=== PATIENT | female | born 1930 | race Caucasian/White ===

== ENCOUNTER 2016-07-30 16:41 | Inpatient (IN) | payer MEDICARE, BC ==
[2016-07-30] MEDS ORDERED: Ondansetron INJ* 2 MG/ML VIAL IV ONE (17:56)
[2016-07-30] MEDS ORDERED: Morphine INJ* 4 MG/ML 1 ML CARPUJECT IV ONE ×2 (17:56→19:28)
[2016-07-30] MEDS ORDERED: NS 0.9% 1000 ML* 1,000 ML IV ONE (17:56)
--- NOTE | 2016-07-30 18:38 | RAD ---
Indication: Right flank pain. CT of the abdomen and pelvis was performed without oral or IV contrast administration. Coronal and sagittal reconstructed images were obtained. Examination of February 25, 2016 was reviewed. There is moderate degree of right hydronephrosis and right hydroureter. There is a calcification in the distal right ureter measuring approximately 8 mm in greatest dimension. Perinephric infiltration of fat is noted. This suggests that there is calyceal rupture. Other calcifications are noted in the lower pole of the left kidney measuring 6 mm and 7 mm. The left kidney shows no hydronephrosis. 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 A calculi is noted in the midportion of the left kidney measuring up to 4 mm. No evidence of abdominal aortic aneurysm is noted. The lung bases demonstrate no pleural fluid, nodules or masses. Cardiomegaly without evidence of pericardial effusion is noted. Liver is normal in size. No focal lesions or intrahepatic ductal dilatation is noted. The liver demonstrates a large left lobe with lobulated contours consistent with cirrhosis. The spleen is normal in size. The pancreas demonstrates no mass or pancreatic duct dilatation. The common duct is not dilated. The colon is filled with stool. No retroperitoneal or pelvic adenopathy is noted. The bladder is unremarkable. Portions of the pelvis are limited due to bilateral hip replacement. IMPRESSION: THERE IS A CALCULI IN THE DISTAL RIGHT URETER JUST ABOVE THE URETEROVESICULAR JUNCTION MEASURING UP TO 8 MM IN GREATEST DIMENSION. MODERATE DEGREE OF RIGHT HYDRONEPHROSIS AND HYDROURETER IS NOTED WITH A PERINEPHRIC INFILTRATION OF FAT SUGGESTIVE OF CALYCEAL RUPTURE. LIPOMA ARISING FROM THE LOWER POLE OF THE LEFT KIDNEY.
[2016-07-30 19:15] LABS: Hematocrit 41 % (35-47); Hemoglobin 13.7 g/dl (12.0-16.0); Mean Corpuscular HGB Conc 34 g/dl (31-36); Mean Corpuscular Hemoglobin 29 pg (27-31); Mean Corpuscular Volume 87 fL (80-97); Mean Platelet Volume 10 um3 (7.4-10.4); Red Blood Count 4.69 10^6/ul (4.0-5.4); Red Cell Distribution Width 14 % (10.5-15); White Blood Count 12.1 10^3/ul (3.5-10.8)
[2016-07-30 19:31] LABS: ALT 18 U/L (7-52); Albumin 4.1 g/dL (3.2-5.2); Alkaline Phosphatase 93 U/L (34-104); BUN/Creatinine Ratio 25.2 (8-20); Blood Urea Nitrogen 29 mg/dL (6-24); C Reactive Protein 3.46 mg/L (< 5.00); CO2 Carbon Dioxide 25 mmol/L (22-32); Calcium 10.5 mg/dL (8.6-10.3); Chloride 97 mmol/L (101-111); EGFR African American 57.4 (>60); EGFR Non-African American 44.6 (>60); Globulin 3.3 g/dL (2-4); Glucose 166 mg/dL (70-100); Lipase 16 U/L (11.0-82.0); Sodium 131 mmol/L (133-145); Total Protein 7.4 g/dL (6.4-8.9)
[2016-07-30] MEDS ORDERED: Dextrose 50% Syringe 50 ML* 25 GM/50 ML SYRINGE IV PUSH PRN (20:42)
[2016-07-30] MEDS ORDERED: Ondansetron INJ* 2 MG/ML VIAL IV PRN (20:42)
[2016-07-30] MEDS ORDERED: Acetaminophen TAB* 325 MG PO PRN (20:42)
[2016-07-30] MEDS ORDERED: oxyCODONE/Acetamin 5/325 MG* TAB PO PRN (20:45)
[2016-07-30] MEDS ORDERED: Timolol 0.5% OPTH.SOL* BTL BOTH EYES SCH (21:00)
[2016-07-30] MEDS ORDERED: hydrALAZINE IV* 20 MG/ML VIAL IV SLOW PU PRN (21:02)
[2016-07-30] MEDS ORDERED: Morphine INJ* 2 MG/ML 1 ML CARPUJECT IV PRN (21:02)
--- NOTE | 2016-07-30 21:24 | ED ---
Dasia Mackenzie SooYoung, scribed for Yg Davis MD on 07/30/16 at 1853 . GI/ HPI - HPI Summary HPI Summary: A 86 y/o F presents to ED with c/o R flank pain onset this AM. Denies fever, dysuria. She rates the pain as 8 out of 10. Pert PMHx: kidney stones, seen by Dr. Hill. States it feels similar to past episodes of kidney stones. - History of Current Complaint Chief Complaint: EDFlankPain Time Seen by Provider: 07/30/16 18:47 Stated Complaint: POSS KIDNEY STONES Hx Obtained From: Patient Onset/Duration: Started Hours Ago, Still Present Timing: Constant Severity: Severe Pain Intensity: 8 - out of 10 Location of Pain: Flank - R Associated Signs and Symptoms: Positive: Other: - neg: fever. Negative: Dysuria - Allergy/Home Medications Allergies/Adverse Reactions: Allergies Allergy/AdvReac Type Severity Reaction Status Date / Time No Known Allergies Allergy Verified 07/30/16 16:57 PMH/Surg Hx/FS Hx/Imm Hx Previously Healthy: No Endocrine/Hematology History: Reports: Hx Diabetes - TYPE 2, Hx Thyroid Disease - ON MED Cardiovascular History: Reports: Hx Coronary Artery Disease - ON MED, Hx Hypertension - ON MED, Hx Pacemaker/ICD - SEES DR. MONTERO, Hx Peripheral Vascular Disease, Other Cardiovascular Problems/Disorders - CAD Denies: Hx Congestive Heart Failure Respiratory History: Reports: Hx Sleep Apnea GI History: Reports: Hx Gastroesophageal Reflux Disease - ON MED History: Reports: Hx Kidney Stones - CURRENTLY ON RIGHT Musculoskeletal History: Reports: Hx Arthritis - GENERALIZED, Other Musculoskeletal History - OSTEOPOROSIS Sensory History: Reports: Hx Cataracts - BILAT, Hx Contacts or Glasses - GLASSES , Hx Glaucoma - BOTH EYES, Hx Hearing Aid - BILAT. Opthamlomology History: Reports: Hx Cataracts - BILAT, Hx Contacts or Glasses - GLASSES, Hx Glaucoma - BOTH EYES Psychiatric History: Reports: Hx Anxiety - ON MED, Hx Depression - ON MED - Surgical History Surgery Procedure, Year, and Place: RIGHT THIGH STENT. PACEMAKER. CHOLECYSTECTOMY/APPY. HYSTERECTOMY. BILT. HIP REPLACEMENT. BILAT.SHOULDER REPLACEMENT Hx Anesthesia Reactions: No - Immunization History Date of Tetanus Vaccine: unsure Date of Influenza Vaccine: 2012 Infectious Disease History: No Infectious Disease History: Denies: Traveled Outside the [place] in Last 30 Days - Family History Known Family History: Positive: Cardiac Disease - brothers, Diabetes - mother, brother, Respiratory Disease - father - emphysema, Other - stomach CA, breast CA , neck CA - Social History Occupation: Retired Lives: Alone Alcohol Use: None Hx Substance Use: No Substance Use Type: Reports: None Hx Tobacco Use: No Smoking Status (MU): Never Smoked Tobacco Review of Systems Negative: Fever Positive: flank pain - R. Negative: dysuria All Other Systems Reviewed And Are Negative: Yes Physical Exam - Summary Physical Exam Summary: Cata: well-appearing, MILD PAIN DISTRESS Skin: warm, skin color reflects adequate perfusion, dry Head/Face: nml head/face inspection Eyes: EOMI, ALEJA ENT: nml Neck: supple, non-tender Resp: CTA, breath sounds present Cardio: RRR Abd: soft, TENDERNESS RLQ Bowel: HYPOACTIVE BOWEL SOUNDS PRESENT Musc: nml, strength/ROM intact Neuro: nml, sensory/motor intact, A&O x 3 Psych: affect/mood appropriate Triage Information Reviewed: Yes Vital Signs On Initial Exam: Initial Vitals Temp Pulse Resp BP Pulse Ox 97.5 F 58 20 155/84 97 07/30/16 16:57 07/30/16 16:57 07/30/16 16:57 07/30/16 16:57 07/30/16 16:57 Vital Signs Reviewed: Yes Diagnostics - Vital Signs Vital Signs Temp Pulse Resp BP Pulse Ox 07/30/16 18:04 97.3 F 60 18 176/65 07/30/16 16:57 97.5 F 58 20 155/84 97 - Laboratory Lab Results: Lab Results 07/30/16 07/30/16 07/30/16 Range/Units 19:06 19:06 19:06 WBC 12.1 H (3.5-10.8) 10^3/ul RBC 4.69 (4.0-5.4) 10^6/ul Hgb 13.7 (12.0-16.0) g/dl Hct 41 (35-47) % MCV 87 (80-97) fL MCH 29 (27-31) pg MCHC 34 (31-36) g/dl RDW 14 (10.5-15) % Plt Count 108 L (150-450) 10^3/ul MPV 10 (7.4-10.4) um3 Neut % (Auto) 84.6 H (38-83) % Lymph % (Auto) 10.0 L (25-47) % [place] % (Auto) 4.1 (1-9) % Eos % (Auto) 0.7 (0-6) % Baso % (Auto) 0.6 (0-2) % Absolute Neuts (auto) 10.2 H (1.5-7.7) 10^3/ul Absolute Lymphs (auto) 1.2 (1.0-4.8) 10^3/ul Absolute Monos (auto) 0.5 (0-0.8) 10^3/ul Absolute Eos (auto) 0.1 (0-0.6) 10^3/ul Absolute Basos (auto) 0.1 (0-0.2) 10^3/ul Absolute Nucleated RBC 0.01 10^3/ul Nucleated RBC % 0.1 INR (Anticoag Therapy) 0.93 (0.89-1.11) Sodium 131 L (133-145) mmol/L Potassium TNP Chloride 97 L (101-111) mmol/L Carbon Dioxide 25 (22-32) mmol/L Anion Gap TNP BUN 29 H (6-24) mg/dL Creatinine 1.15 H (0.51-0.95) mg/dL Est GFR ( Amer) 57.4 (>60) Est GFR (Non-Af Amer) 44.6 (>60) BUN/Creatinine Ratio 25.2 H (8-20) Glucose 166 H (70-100) mg/dL Calcium 10.5 H (8.6-10.3) mg/dL Total Bilirubin 1.50 H (0.2-1.0) mg/dL AST TNP ALT 18 (7-52) U/L Alkaline Phosphatase 93 (34-104) U/L C-Reactive Protein 3.46 (< 5.00) mg/L Total Protein 7.4 (6.4-8.9) g/dL Albumin 4.1 (3.2-5.2) g/dL Globulin 3.3 (2-4) g/dL Albumin/Globulin Ratio 1.2 (1-3) Lipase 16 (11.0-82.0) U/L Result Diagrams: 07/30/16 19:06 07/30/16 19:06 Lab Statement: Any lab studies that have been ordered have been reviewed, and results considered in the medical decision making process. - CT ABD/PEL CT CT Interpretation: Positive (See Comments) - IMPRESSION: THERE IS A CALCULI IN THE DISTAL RIGHT URETER JUST ABOVE THE URETEROVESICULAR JUNCTION MEASURING UP TO 8 MM IN GREATEST DIMENSION. MODERATE DEGREE OF RIGHT HYDRONEPHROSIS AND HYDROURETER IS NOTED WITH A PERINEPHRIC INFILTRATION OF FAT SUGGESTIVE OF CALYCEAL RUPTURE. CT Interpretation Completed By: Radiologist GIGU Course/Dx - Course Assessment/Plan: DISCUSSED WITH DR HILL, UROLOGY. ADMIT HOSPITALIST STABLE. - Diagnoses Provider Diagnoses: Kidney stone on right side - Physician Notifications Discussed Care Of Patient With: 2000: Spoke to Dr. Hill, urology, needs a cath urine: if infected go to OR tonight, if not infected recommends admission and will see tomorrow. Discharge - Discharge Plan Condition: Stable Disposition: ADMITTED TO [facility] The documentation as recorded by the Dasia palomares SooYoung accurately reflects the service I personally performed and the decisions made by me, Yg Davis MD.
[2016-07-30 21:44] LABS: Urine Bacteria Absent (Absent); Urine Bilirubin Negative (Negative); Urine Glucose Negative (Negative); Urine Nitrite Negative (Negative)
[2016-07-30] MEDS ORDERED: cefTRIAXone VIAL(*) 1,000 MG in NS 0.9% 50 ML* 50 ML IVPB SCH (22:00)
[2016-07-30] MEDS: NS 0.9% 1000 ML* 1,000 ML IV SCH (22:16)
--- NOTE | 2016-07-30 22:18 | RAD ---
Indication: Diabetes, hypertension. Single frontal view of the chest performed at 2100 hours was reviewed. Comparison is made with previous exam dated April 28, 2013. No mediastinal shift is noted. Heart is of normal size and configuration. Lung trejo appear clear. IMPRESSION: NO ACTIVE CARDIOPULMONARY DISEASE IS NOTED. Multiple pacemaker leads are in place.
[2016-07-30] MEDS: Gabapentin CAP(*) 300 MG PO SCH (22:41)
[2016-07-30] MEDS: Heparin VIAL(*) 5000 UNITS/ML VIAL (FIVE THOUSAND) SUBCUT SCH (22:43)
--- NOTE | 2016-07-30 23:06 | ED ---
Luiz Mackenzie Anna, scribed for Tayler Huerats MD on 07/30/16 at 1756 . Progress - Progress Note Progress Note: Patient is an 86 y/o female coming to [facility] presenting with right-sided flank pain that began this morning. Pain is described as severity 9/10. Denies emesis. Course/Dx - Diagnoses Provider Diagnoses: Kidney stone on right side The documentation as recorded by the sampsonibeLuiz Anna accurately reflects the service I personally performed and the decisions made by , Tayler Huertas MD.
--- NOTE | 2016-07-31 00:51 | HP ---
HISTORY AND PHYSICAL: DATE OF ADMISSION: 07/30/16 PRIMARY CARE PROVIDER: Dr. Maldonado. ATTENDING PHYSICIAN WHILE IN THE HOSPITAL: Leonard Otero MD* (report dictated by Jaden Long NP) CHIEF COMPLAINT: 1. Right-sided flank pain. 2. Nausea. HISTORY OF PRESENT ILLNESS: Ms. Doran is an 86-year-old female patient with multiple medical problems, who has a history of hypertension, hyperlipidemia, GERD, diabetes, glaucoma, depression, JAIR, history of peripheral vascular disease. She comes in today stating that this morning suddenly she had an onset of right-sided flank pain that got progressively worse throughout the day with associated nausea. She said the pain was not getting any better. She said it felt like her previous stones and she knew that she needed to be evaluated. She came in to the ER initially with a significant amount of pain but she said she is not really having much pain now. She was given morphine. She says that she had one episode of nausea but no vomiting. She denies any dysuria or any frequency or any urinary symptoms. She denies having any chest pain currently or having any shortness of breath. She does state that she has not had any fevers or chills associated with this and she has not had any recent sick contacts. She states that the pain was quite unbearable and she was really unable to bear it any more, so she was evaluated here in the ER, ultimately found to have hydronephrosis and hydroureter and some perinephric straining. Because of this, the hospitalist service was asked to evaluate for admission. PAST MEDICAL HISTORY: Significant for: 1. Hypertension. 2. Hypothyroidism. 3. Hyperlipidemia. 4. GERD. 5. Diabetes. 6. Glaucoma. 7. Depression. 8. JAIR. 9. Peripheral vascular disease. PAST SURGICAL HISTORY: 1. The patient has had a pacemaker. 2. Cataract extraction. 3. Bilateral total hip arthroplasties. 4. Bilateral shoulder surgeries. 5. Laparoscopic cholecystectomy. 6. Multiple kidney stones. 7. Right lower extremity stenting. 8. Appendectomy. HOME MEDICATIONS: According to the patient, she states the meds in the list that we had in the computer have not changed, include: 1. Latanoprost 1 drop both eyes daily. 2. Neurontin 300 mg p.o. b.i.d. 3. Cymbalta 60 mg daily. 4. Aspirin 325 mg p.o. daily. 5. Percocet 1 tablet p.o. every 6 hours as needed. 6. Gabapentin 500 mg p.o. b.i.d. 7. Timolol 1 drop both eyes at bedtime. 8. Zocor 40 mg daily. 9. MiraLax 17 g p.o. daily. 10. Protonix 40 mg daily. 11. Zofran 4 mg every 8 hours as needed. 12. Cozaar 50 mg daily. 13. Synthroid 150 mcg p.o. daily. ALLERGIES TO MEDICATIONS: Include no known drug allergies. FAMILY HISTORY: Her mother had cancer and diabetes. Father had a history of COPD. SOCIAL HISTORY: The patient is a smoker. She does not drink alcohol. She lives alone. Surrogate decision maker is her daughter. REVIEW OF SYSTEMS: There is no documented fever. She denied any significant weight change. There was no double vision. There is no ear discharge. She denies having any rhinorrhea. No sore throat, no thyroid enlargement. She denies having any chest pain. There is no shortness of breath. There is abdominal pain per my HPI. There was nausea, but no vomiting. No dysuria, no frequency. No loss of consciousness. No pruritus and no skin ulcerations. Review of 14 systems completed, all others negative. PHYSICAL EXAMINATION GENERAL: Ms. Doran is an 86-year-old female patient. She appears well nourished, well developed. She is sitting in the ER stretcher. She is morbidly obese, does not appear to be in any acute distress. VITAL SIGNS: Blood pressure 173/74, pulse 77, respirations 18, O2 sat 92%, temperature 97.3. HEENT: Head is atraumatic. Eyes: Sclerae anicteric. Throat: Oral mucosa appears to be moist. No oropharyngeal erythema. NECK: Supple. LUNGS: Clear to auscultation. No wheezes, rales, or rhonchi. HEART: Heart sounds, S1, S2. Regular rate and rhythm. No murmurs, rubs, or gallops. ABDOMEN: Soft, flat. There is no CVA tenderness. EXTREMITIES: Pulses are 2+ throughout. She is able to move all 4 extremities, 5/5 strength. NEUROLOGIC: The patient is awake, alert, oriented x3. Tongue midline. Bar Host equal. No gross focal deficits. SKIN: Grossly intact. LABORATORY DATA: Today reveals WBC of 12.1, RBC of 4.69, hemoglobin 13.7, hematocrit of 41, platelet count of 108. INR is 0.93. Sodium 131, potassium is pending. Bicarb 25. Chloride 97. BUN of 29, creatinine 1.15 right near baseline, glucose 166, calcium 10.5, total bili 1.5, AST pending, ALT of 18, alk phos 93. Albumin of 4.1. IMAGING: She had an abdominal pelvis CT scan obtained today, which showed there is calculi in the distal right ureter just above the UVJ measuring up to 8 mm in greatest dimension, moderate degree of right hydronephrosis, hydroureter is noted with a perinephric infiltration of fat suggestive of calyceal rupture, lipoma arising from the lower pole of kidney. Old medical records were reviewed. ASSESSMENT AND PLAN: Ms. Doran is an 86-year-old female patient coming into the ER today with complaints of sudden onset of right-sided abdominal discomfort , on evaluation found to have right-sided hydronephrosis and hydroureter. She will be admitted under observation status for: 1. Hydronephrosis with hydroureter. At this point, the patient will be n.p.o. I am awaiting the urine. If the urine appears to be infected, I will call Dr. Marcelino and [facility]. If it does not appear to be infected, then I will have him evaluate her in the morning and make her n.p.o. after midnight. Her RCRI score is scored at 2, but I believe she scores higher because she has a sedentary lifestyle, has obstructive sleep apnea. I think she is a moderate risk for the procedure, but I would like to get an EKG and a chest x-ray for further stratification but for now if the surgery is emergent, then the benefits of the surgery outweigh the risk at that point, so we are awaiting on the urine to determine that for the time being. For the time being, I will hydrate her, I will put her on Rocephin , try to get her urine. We will send off blood cultures. In addition to this, we will get urine cultures. 2. Hypertension. I am going to hold her Cozaar. I will order hydralazine p.r.n. as I did note that her blood pressures were in the 170s at this time, which may be related to pain. 3. Hypothyroidism. Continue her Synthroid. 4. Hyperlipidemia. Continue her meds as prescribed. 5. Gastroesophageal reflux disease. Continue PPI therapy. 6. Diabetes. She will be on a lispro sliding scale. 7. Depression. Continue on meds as prescribed. 8. Obstructive sleep apnea, I did order CPAP. 9. Peripheral vascular disease. Continue statin and aspirin. 10. DVT prophylaxis. She is high risk, she will be placed on heparin subcu. 11. Code status. She wishes to be a DNR. I am waiting to see if there is a MOLST form in the computer, if there is we will use this. If there is not, we will go ahead and fill one out. TIME SPENT: Time spent on the admission was 60 minutes; greater than half the time was spent [id number] with the patient obtaining my history and physical, the other half time is spent going over the plan of care with the patient and implementing plan of care. I did discuss the plan of care with my attending, Dr. Otero, who is in agreement. JADNE LONG NP CC: Dr. Maldonado; Dr. Marcelino * [id number]/[facility] #: [id number] MTDD
[2016-07-31] MEDS: Heparin VIAL(*) 5000 UNITS/ML VIAL (FIVE THOUSAND) SUBCUT SCH ×2 (04:45→16:52)
[2016-07-31] MEDS: NS 0.9% 1000 ML* 1,000 ML IV SCH (06:35)
[2016-07-31 06:48] LABS: Hematocrit 36 % (35-47); Hemoglobin 12.2 g/dl (12.0-16.0); Mean Corpuscular HGB Conc 34 g/dl (31-36); Mean Corpuscular Hemoglobin 29 pg (27-31); Mean Corpuscular Volume 87 fL (80-97); Mean Platelet Volume 10 um3 (7.4-10.4); Red Blood Count 4.15 10^6/ul (4.0-5.4); Red Cell Distribution Width 15 % (10.5-15)
[2016-07-31 07:05] LABS: BUN/Creatinine Ratio 21.1 (8-20); Calcium 8.9 mg/dL (8.6-10.3); EGFR African American 48.5 (>60); EGFR Non-African American 37.7 (>60); Potassium 4.2 mmol/L (3.5-5.0)
[2016-07-31] MEDS: Gabapentin CAP(*) 300 MG PO SCH (07:43)
[2016-07-31] MEDS: Insulin LISPRO* 1 UNITS UNIT SUBCUT SCH ×3 (08:56→17:46)
[2016-07-31] MEDS ORDERED: DULoxetine DR CAP* 60 MG CAP.DR PO SCH (09:00)
[2016-07-31] MEDS ORDERED: Omeprazole CAP* 20 MG PO SCH (09:00)
[2016-07-31] MEDS ORDERED: Latanoprost 0.005%* 2.5 ml BTL BOTH EYES SCH (09:00)
[2016-07-31] MEDS ORDERED: Levothyroxine TAB* 150 MCG TAB PO SCH (09:00)
[2016-07-31] MEDS ORDERED: Atorvastatin* 20 MG TAB PO SCH (09:00)
[2016-07-31] MEDS ORDERED: NS 0.9% 1000 ML* 1,000 ML IV SCH (11:00)
[2016-07-31] MEDS ORDERED: Buffered Lidocaine 1% SYR 3ML* 3 ML/SYR SYRINGE INTRADERM ONE (11:00)
[2016-07-31] MEDS ORDERED: Iohexol 180 (CONTRAST) 10 ML SDV IV ONE (12:04)
[2016-07-31] MEDS ORDERED: Propofol* 10 MG/ML 20 ML BTL IV PUSH ONE (12:22)
[2016-07-31] MEDS ORDERED: Lidocaine 2% PF * 5 ML VIAL ONE (12:22)
[2016-07-31] MEDS ORDERED: Famotidine IV* 10 MG/ML 2 ML (20 mg) ONE (12:22)
[2016-07-31] MEDS ORDERED: Dexamethasone IV* 4 MG/ML 1 ML (4 MG) ONE (12:22)
[2016-07-31] MEDS ORDERED: Midazolam* 1 MG/ML 2 ML VIAL (2 MG) ONE (12:22)
[2016-07-31] MEDS ORDERED: fentaNYL* 50 MCG/ML 2 ML VIAL (100 MCG VIAL) ONE (12:43)
[2016-07-31] MEDS ORDERED: cefTRIAXone VIAL(*) 1,000 MG in NS 0.9% 50 ML* 50 ML IVPB ONE (13:00)
[2016-07-31] MEDS ORDERED: DiMENhydriNATE IV* 50 MG/ML VIAL IV PUSH PRN (13:03)
[2016-07-31] MEDS ORDERED: fentaNYL* 50 MCG/ML 2 ML VIAL (100 MCG VIAL) IV PRN (13:03)
[2016-07-31] MEDS ORDERED: PROCHLORPERAZINE INJ 5 MG/ML 2 ML VIAL IV PRN (13:03)
--- NOTE | 2016-07-31 14:04 | RAD ---
INDICATION: Hydronephrosis COMPARISONS: CT dated July 30, 2016 TECHNIQUE: Fluoroscopy was provided for a retrograde pyelogram and stent placement. Total fluoroscopy time is: 14 seconds FINDINGS: Spot images demonstrate contrast within the renal collecting system which is dilated. A ureteral stent is noted IMPRESSION: FLUOROSCOPY WAS PROVIDED FOR A RETROGRADE PYELOGRAM AND STENT PLACEMENT CPT II Codes: 6045F
[2016-07-31] MEDS ORDERED: oxyCODONE/Acetamin 5/325 MG* TAB PO PRN (16:20)
[2016-07-31 17:42] VITALS: BP 105/41
--- NOTE | 2016-08-01 02:04 | OP ---
DATE OF OPERATION: 07/31/16 - ROOM #334 DATE OF : 28 SURGEON: Abel Marcelino MD ANESTHESIOLOGIST: Jeferson Holguin MD ANESTHESIA: General. PRE-OP DIAGNOSES: 1. Distal right ureteral calculus (8 mm). 2. Renal colic due to above. POST-OP DIAGNOSES: 1. Distal right ureteral calculus (8 mm). 2. Renal colic due to above. OPERATIVE PROCEDURE: 1. Cystoscopy. 2. Right ureteroscopy and laser lithotripsy of right ureteral calculus. 3. Right retrograde pyelography and placement of right ureteral stent (6 [place] ). INDICATIONS: Ms. Doran is an 86-year-old white female who is a known stone former and who required several endoscopic procedures in the past for obstructing ureteral calculi. She is known to have residual bilateral renal calculi. She presented to the emergency room yesterday with symptoms of right renal colic and noncontrast CT of the abdomen and pelvis showed an 8-mm calculus in the distal right ureter associated with right hydronephrosis and extravasation around the right kidney. There were also bilateral non-obstructing renal calculi. The patient was not febrile and her urinalysis showed no infection. The patient was admitted for IV hydration and medical clearance. She is taken to the operating room for endoscopic extraction of the Rt ureteral stone. PATHOLOGY: At cystoscopy, the bladder mucosa looked normal. There were no suspicious bladder lesions seen. No changes to suggest cystitis. No calculi or diverticula were noted. She had a cystocele. At fluoroscopy, a 1-cm calculus was noted in the distal right ureter about 3 cm above the level of the orifice. Upon right ureteroscopy, the calculus was noted in that location. It was impacted. There was edema of the adjacent ureteral mucosa. The calculus had the gross appearance of calcium oxalate stone. Right retrograde pyelography showed moderate right hydronephrosis. DESCRIPTION OF PROCEDURE: After successful general anesthesia, the patient was placed in the lithotomy position and was prepped and draped in the usual manner. Cystoscopy was performed. The bladder was inspected and above findings were noted. A flexible-tip guidewire was then introduced into the right orifice and after several attempts was successfully introduced past the stone and positioned in the area of the renal pelvis. The Cystoscope was removed keeping the guidewire in place. A size 6.5 semirigid tapered ureteroscope was then introduced inside the bladder. A flexible-tip stone basket was then introduced through the port of the ureteroscope and its flexible tip was introduced inside the right ureteral orifice and used as a guide to introduce the ureteroscope. The calculus was identified. The stone basket was then passed beyond the stone and was deployed to prevent the proximal migration of the stone. Using the other port of the ureteroscope, a 550 micron laser fiber was introduced. The stone was then broken in multiple small fragments. The fragments were extracted with basket. At the completion of the procedure, there were no residual stone fragments seen. There were hyperemia and edema of the ureteral mucosa at the site of the stone, but no evidence of any ureteral injury or perforation. Retrograde pyelography was then performed. A size 6 [place] stent was then placed over the guidewire with proximal end coiling in the renal pelvis and distal end coiling inside the bladder. There was good drainage of the contrast from the kidney and no extravasation. A size 16 [place] catheter was then placed. The patient tolerated the procedure well and left the operating room in good condition. The plan is to leave the stent in place for about a week, it will be removed in the office. CC: Dr. Ro * [id number]/[facility] #: [id number] MARLENE
--- NOTE | 2016-08-01 04:18 | DS ---
DISCHARGE SUMMARY: DATE OF ADMISSION: 07/30/16 DATE OF DISCHARGE: 07/31/16 PRIMARY CARE PROVIDER: Vel Ro DO UROLOGIST: Abel Marcelino MD DISCHARGE DIAGNOSIS: 1. Renal colic. 2. Nephrolithiasis with hydronephrosis and hydroureter. 3. Leukocytosis. SECONDARY DIAGNOSIS: 1. Hypertension. 2. Hypothyroidism. 3. Hyperlipidemia. 4. Gastroesophageal reflux disease. 5. Type 2 diabetes. 6. Glaucoma. 7. Depression. 8. Obstructive sleep apnea. 9. Peripheral vascular disease. 10. Obesity with a BMI of 39.5. 11. Status post pacemaker. 12. Status post cataract surgery. 13. Status post bilateral hip arthroplasties. 14. Bilateral shoulder surgeries. 15. Status post cholecystectomy. 16. History of multiple kidney stones. 17. Status post multiple urological procedures. 18. Status post stent to the right lower extremity. MEDICATION LIST: Unchanged from admission: 1. Aspirin 325 mg p.o. daily. 2. Cymbalta 60 mg p.o. daily. 3. Gabapentin 300 mg p.o. b.i.d. 4. Xalatan 0.005% one drop to both eyes daily. 5. Levothyroxine 150 mcg p.o. daily. 6. Losartan 50 mg daily. 7. Metformin 500 mg p.o. b.i.d. 8. Pantoprazole 40 mg p.o. daily. 9. Simvastatin 40 mg p.o. daily. 10. Timolol 0.5% one drop to both eyes at bedtime. New medications: Tylenol 650 mg p.o. q.6 hours p.r.n. pain or fever. HOSPITAL COURSE: Ms. Doran is an 86-year-old lady with a past medical history stated above who presented to the emergency room with complaints of right-sided flank pain and nausea. For more details about her presentation, I refer you to her history and physical. The patient had a CT of abdomen and pelvis without contrast that showed a calculi in the distal right ureter just above the ureterovesical junction measuring up to 8 mm in greatest dimension. There is moderate degree of right hydronephrosis and hydroureter with perinephric infiltration of fat suggestive of calyceal rupture. The patient was admitted for pain control. Her urinalysis showed only hematuria , but no signs of infection. The patient was seen in consultation by Urology and taken to the OR on . Dr. Marcelino performed cystoscopy and removed the stone on the right and placed the stent. His recommendation was that the patient could be discharged home after the procedure. It was not felt that she required antibiotics as there is no sign of infection at this point. The plan is for her to be discharged home to follow up with him next week. PHYSICAL EXAMINATION: Vital signs: Temperature of 97.6, heart rate is 75, respiratory rate 16, oxygen saturation is 98% on 1 L nasal cannula, blood pressure is 124/52. General: The patient is a pleasant elderly obese lady, lying in bed, in no acute distress. Cardiovascular: Normal S1 and S2. Regular rate and rhythm. Chest: Breath sounds present bilaterally with no added sounds. Abdomen: Soft, obese. Bowel sounds are present. Extremities: No edema. Neurologic: She is alert, awake, and oriented x3, able to move all 4 extremities. DISPOSITION: Home. STATUS WHILE IN THE HOSPITAL: Observation. DIET: Heart healthy consistent carb diet. ACTIVITY: As tolerated. If you need more information, please feel free to contact me at [phone] or please obtain a full medical record. TIME SPENT: Approximately 45 minutes were spent to complete this discharge. CC: Vel Ro DO; Abel Marcelino MD* [id number]/[facility] #: [id number] MTDD
== END 2016-07-31 19:00 | disposition home or self-care (01) | DRG 669 ==
LOC: ED 16:41 → SSU 20:34
PROVIDERS: ADMIT Internal Medicine; ATTEND Internal Medicine
PROC: 0T768DZ Dilation of Right Ureter with Intraluminal Device, Via Natural or Artificial Opening Endoscopic (ICD-10-PCS; 2016-07-31)
PROC: BT1DZZZ Fluoroscopy of Right Kidney, Ureter and Bladder (ICD-10-PCS; 2016-07-31)
PROC: 0TC68ZZ Extirpation of Matter from Right Ureter, Via Natural or Artificial Opening Endoscopic (ICD-10-PCS; principal; 2016-07-31 12:00)
DX: N23 Unspecified renal colic (principal); N13.2 Hydronephrosis with renal and ureteral calculous obstruction; E11.42 Type 2 diabetes mellitus with diabetic polyneuropathy; R31.9 Hematuria, unspecified; N13.4 Hydroureter; D72.829 Elevated white blood cell count, unspecified; I10 Essential (primary) hypertension; E78.5 Hyperlipidemia, unspecified; K21.9 Gastro-esophageal reflux disease without esophagitis; H40.9 Unspecified glaucoma; G47.33 Obstructive sleep apnea (adult) (pediatric); E66.01 Morbid (severe) obesity due to excess calories; Z68.39 Body mass index [BMI] 39.0-39.9, adult; Z95.0 Presence of cardiac pacemaker; Z96.643 Presence of artificial hip joint, bilateral; Z79.82 Long term (current) use of aspirin; Z79.84 Long term (current) use of oral hypoglycemic drugs; Z79.52 Long term (current) use of systemic steroids; Z79.899 Other long term (current) drug therapy; Z80.9 Family history of malignant neoplasm, unspecified; Z83.3 Family history of diabetes mellitus; Z83.6 Family history of other diseases of the respiratory system; F17.210 Nicotine dependence, cigarettes, uncomplicated
CPT/HCPCS: 36415; 71010; 74176; 74420; 80048; 80053; 81003; 81015; 82365; 83605; 83690; 85025; 85610; 86140; 87040; 88300; 93005; 94760; 96374; 96375; 99284; A9270-GY; C1876; J0360; J0696; J1100; J1644; J2250; J2270; J2405; J2704; J3010

== ENCOUNTER 2016-11-09 08:32 | Day surgery (SDC) | payer MEDICARE, BC ==
--- NOTE | 2016-11-02 22:19 | HP ---
HISTORY AND PHYSICAL: DATE OF PLANNED ADMISSION AND SURGERY: 11/09/16 HISTORY OF PRESENT ILLNESS: Ms. Doran is an 86-year-old white female who is admitted with right hydroureteronephrosis, suspected distal right ureteral stricture for cystoscopy, right ureteroscopy balloon dilation, and right ureteral stent placement. Ms. Doran is a known stone former who over the last 4 years had bilateral ureteroscopies for obstructing ureteral calculi. The last procedure was performed on 07/31/16. At that time, she had a 1-cm calculus that was impacted in the distal right ureter. She underwent an urgent right ureteroscopy, laser lithotripsy, and right ureteral stent placement. All the stone fragments were removed. At the time of the procedure, the stone was impacted and there was edema of the adjacent ureteral mucosa. The stent was removed postop about one week later. She has been doing well except for an occasional brief discomfort in the right flank, but no recurrent colics. She had a follow-up renal ultrasound in the office, which showed moderate-to- severe right hydroureteronephrosis. A calculus could not be seen in the distal ureter. The patient was sent for a non-contrast CT of the abdomen and pelvis. The study showed 2 small nonobstructing right renal calculi measuring about 5 mm each. There was [id number] right hydronephrosis and the ureter was dilated all the way to the distal end and no abnormal calcifications were noted to suggest a stone, strongly suggestive of a ureteral stricture. Because of that finding, the patient is admitted for the above procedure. PAST MEDICAL HISTORY AND SYSTEM REVIEW: The patient has multiple medical problems. She has hypertension, hypothyroidism, hyperlipidemia, type 2 diabetes , status post pacemaker placement, status post bilateral hip arthroplasties, status post cholecystectomies, and gastroesophageal reflux. She has no allergies to medications. She has a pacemaker in place since 2007. MEDICATIONS: The patient is maintained on the following medications: 1. Aspirin 325 mg daily. 2. Cymbalta 60 mg daily. 3. Gabapentin 300 mg twice a day. 4. Levothyroxine 150 mcg daily. 5. Losartan 50 mg daily. 6. Metformin 500 mg twice a day. 7. Pantoprazole 40 mg daily. 8. Simvastatin 40 mg daily. 9. Timolol 0.5% 1 drop to both eyes at bedtime for glaucoma. PHYSICAL EXAMINATION Obese white female, who looks her age. Blood pressure 120/60, pulse of 50. Exam of the heart and lungs is normal. Her lungs are clear. Abdomen is soft, obese. No masses and no tenderness. IMPRESSION: Distal right ureteral stricture causing right hydroureteronephrosis, status post right ureteroscopy for an impacted stone 3 months ago. Multiple medical problems as noted above. PLAN: Plan is for cystoscopy, right ureteroscopy and balloon dilation of right ureteral stricture with a placement of right ureteral stent. I discussed the above plans with the patient. All her questions were answered. CC: Vel Ro DO* [id number]/[facility] #: [id number] MTDD
[~2016-11-09 08:32] MED LIST: Famotidine IV* 10 MG/ML 2 ML (20 mg) IV ONE; Famotidine IV* 10 MG/ML 2 ML (20 mg) ONE; cefTRIAXone(*) 2 GM ADDV.VIAL IVPB ONE
[2016-11-09] MEDS ORDERED: Buffered Lidocaine 0.9% SYRIN* 5 ML/SYR SYRINGE ONE (08:33)
[2016-11-09] MEDS ORDERED: Buffered Lidocaine 0.9% SYRIN* 5 ML/SYR SYRINGE INTRADERM ONE (08:43)
[2016-11-09] MEDS ORDERED: KETAMINE HCL* 50 MG/ML 10 ML VIAL ONE (09:42)
[2016-11-09] MEDS ORDERED: Midazolam* 1 MG/ML 5 ML VIAL (5 MG) ONE (09:42)
[2016-11-09] MEDS ORDERED: Dexamethasone IV* 4 MG/ML 1 ML (4 MG) ONE (09:42)
[2016-11-09] MEDS ORDERED: Propofol* 10 MG/ML 20 ML BTL IV PUSH ONE (09:42)
[2016-11-09] MEDS ORDERED: Lidocaine 2% PF * 5 ML VIAL ONE (09:42)
[2016-11-09] MEDS ORDERED: Ketorolac INJ* 30 MG/ML 1 ML VIAL ONE (09:42)
[2016-11-09] MEDS ORDERED: Ondansetron INJ* 2 MG/ML VIAL ONE (09:42)
[2016-11-09] MEDS ORDERED: fentaNYL* 50 MCG/ML 2 ML VIAL (100 MCG VIAL) ONE (09:42)
[2016-11-09] MEDS ORDERED: Iohexol 180 (CONTRAST) 10 ML SDV IV ONE (09:59)
[2016-11-09] MEDS ORDERED: Chloroprocaine 2%* 20 ML VIAL ONE (10:02)
[2016-11-09] MEDS ORDERED: Phenylephrine IV* 40 MCG/ML 10 ML SYRINGE ONE (10:28)
[2016-11-09] MEDS ORDERED: EPHEDrine (Pressors)* 50 MG/ML VIAL ONE (10:36)
[2016-11-09] MEDS ORDERED: DiMENhydriNATE IV* 50 MG/ML VIAL IV PUSH PRN (10:50)
[2016-11-09] MEDS ORDERED: fentaNYL* 50 MCG/ML 2 ML VIAL (100 MCG VIAL) IV PRN (10:50)
[2016-11-09] MEDS ORDERED: Phenylephrine INJ* 10 MG/ML 1 ML VIAL (10 MG) ONE (11:08)
[2016-11-09] MEDS ORDERED: Phenylephrine INJ* 50 MG in NS 0.9% 250 ML* 245 ML IV PRN (11:08)
[2016-11-09 12:15] VITALS: BP 152/68
--- NOTE | 2016-11-09 15:25 | RAD ---
INDICATION: Perineural stricture, hydronephrosis with calculus COMPARISONS: November 02, 2016 TECHNIQUE: Fluoroscopy was provided for a retrograde pyelogram and stent placement. Total fluoroscopy time is: 16.2 minutes. FINDINGS: Contrast is noted within the renal collecting system which appears dilated. A ureteral stent is noted. IMPRESSION: FLUOROSCOPY WAS PROVIDED FOR A RETROGRADE PYELOGRAM AND STENT PLACEMENT CPT II Codes: 6045F
--- NOTE | 2016-11-10 00:09 | OP ---
CC: Dr. Ro OPERATIVE REPORT: DATE OF OPERATION: 11/09/16 DATE OF : 28 SURGEON: Abel Marcelino MD ANESTHESIOLOGIST: Dr. Collin Mathis. ANESTHESIA: Spinal. PRE-OP DIAGNOSES: 1. Distal right ureteral stricture. 2. Right hydroureteronephrosis due to above. POST-OP DIAGNOSES: 1. Distal right ureteral stricture. 2. Right hydroureteronephrosis due to above. OPERATIVE PROCEDURE: 1. Cystoscopy. 2. Right retrograde pyelography. 3. Right ureteroscopy. 4. Balloon dilation of distal right ureteral stricture. 5. Placement of right ureteral stent (black silicone, 22 cm, 8.5-Brazilian). INDICATION FOR PROCEDURE: Ms. Doran is an 86-year-old female who is a known stone former and had bilateral ureteroscopies in the past for obstructing ureteral calculi. Her last procedure was performed three and a half months ago and consisted of right ureteroscopy and laser lithotripsy of an impacted 1 cm calculus in the distal right ureter followed by placement of a stent. The stent was removed about a week later. She has been doing fine except for occasional episodes of right back pain. Recent renal ultrasound followed by a non-contrast CT of the abdomen and pelvis showed moderate right hydroureteronephrosis with the ureter dilated all the way to just proximal to the ureterovesical junction. No calculi were noted. Because of the above findings, the patient is brought in for the above procedure. PATHOLOGY: At cystoscopy, the bladder mucosa looked normal. There were no suspicious of bladder lesions seen. There was slight edema surrounding the right ureteral orifice. The orifice looked otherwise normal. Upon right retrograde pyelography, there was a 1.5 cm strictured segment of the distal ureter just proximal to the intramural portion of the ureter. Right ureteroscopy showed some scarring in the mucosa and very small stone fragments embedded under the mucosa. There were no other calculi seen and no suspicious bladder lesions. Ureteroscopy above the narrowed segment showed dilated ureter , but no lesions. DESCRIPTION OF PROCEDURE: After successful spinal anesthesia, the patient was placed in the lithotomy position and was prepped and draped for cystoscopy. Cystoscopy was performed. The bladder was carefully inspected and the above findings were noted. A size 5-Brazilian open-ended catheter was positioned in the distal right ureter over a guidewire. The guidewire was removed. Retrograde pyelography was performed demonstrating the pathology. The guidewire was then reintroduced and positioned in the area of the renal pelvis. A size 6.5 semirigid tapered ureteroscope was then introduced inside the right orifice and a spiral tip stone basket was fed through the port of the ureteroscope and its flexible tip was used as a guide to introduce the ureteroscope into the ureter and through the stricture. The site of the stricture was carefully inspected and the above findings were noted. The ureteroscope was introduced without difficulty through the stricture and proximal to it and the inspection of the ureter was continued all the way to its mid portion. The ureteroscope was then removed keeping the guidewire in place. An 18-Brazilian balloon dilator was then fed on top of the guidewire and positioned in the distal ureter. The balloon was inflated achieving dilation of the strictured segment equivalent to about 80% of the caliber of the rest of the ureter.There was still some wasting of the strictured ureteral segment. The balloon was kept inflated for about 4 minutes. It was then deflated and was removed. A black silicone stent, 22 cm long, 8.5-Brazilian was then fed on top of the guidewire and positioned with the proximal end coiling in the renal pelvis and the distal end coiling inside the bladder. The patient tolerated the procedure well and left the operating room in good condition. The plan is to leave the stent in place for at least 2 to 4 weeks and we will evaluate the response of the stricture to the balloon dilation. [id number]/[facility] #: [id number] MARLENE
== END 2016-11-09 13:30 | disposition home or self-care (01) ==
LOC: OR 08:32
PROVIDERS: ATTEND Urology
DX: N13.1 Hydronephrosis with ureteral stricture, not elsewhere classified (principal); E11.9 Type 2 diabetes mellitus without complications; Z79.84 Long term (current) use of oral hypoglycemic drugs; I49.5 Sick sinus syndrome; Z95.0 Presence of cardiac pacemaker; I73.9 Peripheral vascular disease, unspecified; E03.9 Hypothyroidism, unspecified; G47.33 Obstructive sleep apnea (adult) (pediatric)
CPT/HCPCS: 74420; C2617; J0696; J1100; J1885; J2250; J2400; J2405; J2704; J3010

== ENCOUNTER 2017-05-08 07:34 | Day surgery (SDC) | payer MEDICARE, BC ==
--- NOTE | 2017-04-24 07:26 | HP ---
CC: Dr. Ro HISTORY AND PHYSICAL: DATE OF PLANNED ADMISSION AND SURGERY: 05/08/17 HISTORY OF PRESENT ILLNESS: Ms. Doran is an 86-year-old white female who is admitted with right hydroureteronephrosis, distal right ureteral obstruction, for cystoscopy, right ureteroscopy, balloon dilation and right ureteral stent placement. Ms. Doran had past history of renal calculus disease and over the last 4 years had bilateral ureteroscopies for ureteral calculi. About 9 months ago, she had a 1 cm calculus that was impacted in the distal right ureter. She had a right ureteroscopy, laser lithotripsy, and right ureteral stent placement. She did well postoperatively, however, on followup renal ultrasound she was noted to have a recurrence of the right hydroureteronephrosis with the obstruction located in the distal right ureter. On 11/09/16, she underwent a right ureteroscopy, which showed a distal ureteral stricture at the site of the original stone, no stone fragments seen. She had balloon dilation of a distal right ureteral stricture and placement of a right ureteral stent. The stent was removed about 5 weeks later. She did well, and follow up renal ultrasound showed resolution of the hydronephrosis. On a recent CT of the abdomen that was done for evaluation of a colonic polyp, she was noted to have a recurrence of the right hydroureteronephrosis. The CT also showed a non-obstructing 4 mm calculus in the right kidney and a dilated right ureter. The distal ureter could not be well visualized due to hip prothesis. The patient has been minimally symptomatic from the Rt hydronephrosis, having only occasional episodes of mild right flank pain. She denies any history of recent renal colic. No history of any gross hematuria, fever, or chills, or uti symptoms. PAST MEDICAL HISTORY AND SYSTEM REVIEW: The patient has multiple medical problems including hypertension, hypothyroidism, hyperlipidemia, type 2 diabetes mellitus, status post placement of a pacemaker, and bilateral hip prostheses. She had a pacemaker in place since 2007. She is being worked up for a colonic polyp and was supposed to have GI consultation in [place] for attempt at endoscopic removal. MEDICATIONS: The patient is maintained on: 1. Aspirin 325 mg daily. 2. Cymbalta 60 mg daily. 3. Gabapentin 300 mg twice a day. 4. Levothyroxine 150 mcg daily. 5. Losartan 50 mg daily. 6. Metformin 500 mg twice a day. 7. Pantoprazole 40 mg daily. 8. Simvastatin 40 mg daily. 9. She is on timolol for both eyes because of her glaucoma. PHYSICAL EXAMINATION GENERAL: Pleasant white female, who is obese and looks her age. VITAL SIGNS: Blood pressure 130/80, pulse of 50. LUNGS: Clear. HEART: Regular and rhythmic. No murmurs. ABDOMEN: Soft, obese, no tenderness, and no CVA tenderness. IMPRESSION: 1. Right hydroureteronephrosis probably caused by a distal right ureteral stricture. 2. Non obstructing 4 mm Rt ureteral calculus. 3. Multiple medical problems as mentioned above. PLAN: For cystoscopy, right ureteroscopy, balloon dilation of distal right ureteral stricture and placement of right ureteral stent. I discussed the above plans with the patient and her sister and all their questions were answered. [id number]/[facility] #: [id number] MARLENE
[~2017-05-08 07:34] MED LIST changes: +Buffered Lidocaine 0.9% SYRIN* 5 ML/SYR SYRINGE INTRADERM ONE; -Famotidine IV* 10 MG/ML 2 ML (20 mg) ONE; +Metoclopramide TAB* 10 MG PO ONE; -cefTRIAXone(*) 2 GM ADDV.VIAL IVPB ONE
[2017-05-08] MEDS ORDERED: Famotidine IV* 10 MG/ML 2 ML (20 mg) ONE (07:46)
[2017-05-08] MEDS ORDERED: cefTRIAXone(*) 2 GM ADDV.VIAL IVPB ONE (07:46)
[2017-05-08] MEDS ORDERED: Metoclopramide TAB* 10 MG ONE (07:46)
[2017-05-08] MEDS ORDERED: Buffered Lidocaine 0.9% SYRIN* 5 ML/SYR SYRINGE ONE (07:47)
[2017-05-08] MEDS ORDERED: Lidocaine 2% PF * 5 ML VIAL ONE (08:14)
[2017-05-08] MEDS ORDERED: Propofol* 10 MG/ML 20 ML BTL IV PUSH ONE (08:14)
[2017-05-08] MEDS ORDERED: Dexamethasone IV* 4 MG/ML 1 ML (4 MG) ONE (08:14)
[2017-05-08] MEDS ORDERED: Ondansetron INJ* 2 MG/ML VIAL ONE (08:14)
[2017-05-08] MEDS ORDERED: KETAMINE HCL* 50 MG/ML 10 ML VIAL ONE (08:15)
[2017-05-08] MEDS ORDERED: Midazolam* 1 MG/ML 5 ML VIAL (5 MG) ONE (08:15)
[2017-05-08] MEDS ORDERED: fentaNYL* 50 MCG/ML 2 ML VIAL (100 MCG VIAL) ONE (08:15)
[2017-05-08] MEDS ORDERED: Phenylephrine IV* 40 MCG/ML 10 ML SYRINGE ONE (09:17)
[2017-05-08] MEDS ORDERED: Ondansetron INJ* 2 MG/ML VIAL IV PRN (09:25)
[2017-05-08] MEDS ORDERED: fentaNYL* 50 MCG/ML 2 ML VIAL (100 MCG VIAL) IV PRN (09:25)
--- NOTE | 2017-05-08 10:23 | RAD ---
INDICATION: Cystoscopy, RIGHT side retrograde pyelogram, balloon dilatation and stent placement. History of urolithiasis. COMPARISON: November 02, 2016 CT. November 09, 2016 retrograde pyelogram. TECHNIQUE: 13 seconds fluoroscopy. FINDINGS: RIGHT retrograde pyelogram documents moderate caliectasis. RIGHT ureteral balloon dilatation documented. RIGHT ureteral stent placed. IMPRESSION: Procedural fluoroscopy. CPT II Codes: 6045F
[2017-05-08 10:41] VITALS: BP 144/68
--- NOTE | 2017-05-08 14:25 | OP ---
CC: Dr. Ro * DATE OF OPERATION: 05/08/17 - [facility] DATE OF : 28 SURGEON: Abel Marcelino MD ANESTHESIOLOGIST: Dr. Collin Mathis. ANESTHESIA: General. PRE-OP DIAGNOSES: 1. Right hydroureteronephrosis. 2. Distal right ureteral stricture. POST-OP DIAGNOSES: 1. Right hydroureteronephrosis. 2. Distal right ureteral stricture. OPERATIVE PROCEDURE: 1. Cystoscopy. 2. Right retrograde pyelography. 3. Right ureteroscopy. 4. Balloon dilation of distal right urethral stricture. 5. Placement of right ureteral stent (black silicone, 22 cm, 8.5-Emirati). INDICATION FOR PROCEDURE: Mrs. Doran is an 86-year-old white female who is a stone former and underwent a right ureteroscopy and laser lithotripsy with stent placement for a chronically impacted 1 cm calculus in the distal right ureter about 9 months ago. In November 2016, she was noted to have a right hydroureteronephrosis caused by a distal right ureteral stricture and then underwent a cystoscopy, balloon dilation of the stricture and stent placement. The stent was kept in place for about 5 weeks and after it was removed renal ultrasound which showed resolution of the hydronephrosis. On a recent CT of the abdomen and pelvis done for work-up of a colonic polyp, she was noted to have moderate right hydroureteronephrosis. The patient has been minimally symptomatic from the condition. Because of the above finding, the patient is taken to the operating room today for evaluation and treatment. PATHOLOGY AT CYSTOSCOPY: The bladder mucosa looked normal. There were no suspicious bladder lesions seen. The ureteral orifices looked normal. Upon right retrograde pyelography, a 1-cm stricture was noted in the distal right ureter about 1 to 2 cm above the level of the ureteral orifice. There was moderate dilatation of the ureter proximal to the stent and moderate right hydronephrosis. Upon right ureteroscopy, the stricture could be entered with the ureteroscope. It again measured 1 cm in size. There were no intrinsic ureteral lesions, and no calculi seen. The ureter proximal to the stricture looked dilated, but the mucosa looked normal. No calculi were seen in the ureter. Balloon dilation of the stricture was partially successful, dilating the stricture to about 60% compared to the rest of the ureter. DESCRIPTION OF PROCEDURE: After successful general anesthesia, the patient was placed in the lithotomy position and was prepped and draped for a cystoscopy. Cystoscopy was performed. The bladder was inspected and the above findings were noted. A flexible tip guidewire was then introduced into the right orifice and was positioned in the area of the renal pelvis. A size 5-Emirati open-ended catheter was then fed on top of the guidewire and positioned just proximal to the orifice. Retrograde pyelography was performed demonstrating the above described stricture and pathology. The guidewire was then repositioned in the renal pelvis. A size 6.5 semirigid tapered ureteroscope was passed inside the bladder and introduced into the right ureter alongside the guidewire. The ureteroscope was successfully introduced through the stricture demonstrating the stricture and showing no calculi or ureteral lesions. The ureteroscope was then introduced all the way up into the proximal ureter. The ureteroscope was then removed, and the the cystoscope was then reintroduced over the guidewire. A 21-gauge, 7 cm long balloon dilator was then fed on top of the guidewire and positioned in the distal ureter. The balloon was inflated with digital pressure. The balloon was kept inflated for about 6 minutes. The waisting at the stricture was noted and improved to 60% compared to the rest of the ureter. The narrowed segment length was also reduced to about half a centimeter. The balloon was then deflated and the catheter was removed keeping the guidewire in place. A 22 cm long, 8.5 black silicone stent was then fed on top of the guidewire and positioned with the proximal end coiling in the renal pelvis and the distal end coiling inside the bladder. There was good drainage of contrast from the kidney and no extravasation. The patient tolerated the procedure well and left the operating room in good condition. The plan is to leave the stent in place for about 5 or 6 weeks. The patient will then be observed for possible recurrence of the stricture. If the stricture recurs and considering the patient's age and comorbidities, she will be managed endoscopically rather than by ureteral reimplantation. [id number]/[facility] #: [id number] MTDD
== END 2017-05-08 10:52 | disposition home or self-care (01) ==
LOC: OR 07:34
PROVIDERS: ATTEND Urology
DX: N13.1 Hydronephrosis with ureteral stricture, not elsewhere classified (principal); N20.1 Calculus of ureter; Z96.0 Presence of urogenital implants; I10 Essential (primary) hypertension; E03.9 Hypothyroidism, unspecified; E78.5 Hyperlipidemia, unspecified; E11.9 Type 2 diabetes mellitus without complications; Z79.84 Long term (current) use of oral hypoglycemic drugs; Z79.82 Long term (current) use of aspirin; Z95.0 Presence of cardiac pacemaker; H40.9 Unspecified glaucoma; K21.9 Gastro-esophageal reflux disease without esophagitis; F41.9 Anxiety disorder, unspecified; G47.33 Obstructive sleep apnea (adult) (pediatric)
CPT/HCPCS: 74420; A9270-GY; C2617; J0696; J1100; J2250; J2405; J2704; J3010

== ENCOUNTER 2018-03-14 11:05 | Day surgery (SDC) | payer MEDICARE, BC ==
--- NOTE | 2018-03-09 23:00 | HP ---
CC: Dr. Ro * HISTORY AND PHYSICAL: DATE OF PLANNED ADMISSION AND SURGERY: 03/14/18 HISTORY OF PRESENT ILLNESS: Ms. Doran is an 87-year-old white female, who is admitted with right hydroureteronephrosis, distal right ureteral stricture for cystoscopy, and right ureteral stent placement. Ms. Doran' history goes back to April 2016 where she had an impacted calculus in the distal right ureter. The stones were treated with ureteroscopy and laser lithotripsy. She required another right ureteroscopy for another impacted 8 mm calculus in the distal right ureter in July 2016. Following removal of the stent, she was noted to have recurrence of the right hydronephrosis and hydroureter with the obstruction in the distal ureter, and no calculi were seen. On 05/08/17, she was taken to the operating room where she had a right ureteroscopy, which showed a stricture in the distal right ureter. She had a balloon dilation of the stricture and stent placement. The stent was removed about 2 months later and the patient was followed up with renal ultrasound, which showed a slow moderate right hydronephrosis. She had a diuretic nuclear renal scan, which showed equal bilateral renal function; however, there was an obstructive pattern of the right kidney with T1/ 2 in excess of 20 minutes. A recent renal ultrasound showed [id number] right hydronephrosis. No calculi were seen. The patient's lab work showed a serum creatinine of 1.3. Because of the findings of the recurrent and increasing right hydronephrosis and the obstructive pattern seen on the nuclear scan and after discussing the options of management with the patient, she is admitted for the above procedure. PAST MEDICAL HISTORY AND SYSTEM REVIEW: The patient has hypertension, hypothyroidism, hyperlipidemia, type 2 diabetes mellitus, status post placement of a pacemaker, and bilateral hip prostheses. MEDICATIONS: She is maintained on the following medications: 1. Aspirin 325 mg daily. 2. Cymbalta 60 mg daily. 3. Gabapentin 300 mg twice a day. 4. Levothyroxine 150 mcg daily. 5. Losartan 50 mg daily. 6. Metformin 500 mg twice a day. 7. Pantoprazole 40 mg daily. 8. Simvastatin 40 mg daily. 9. Timolol in both eyes because of glaucoma. ALLERGIES: She denies any allergies to medications. PHYSICAL EXAMINATION GENERAL: Pleasant obese white female who has some difficulty ambulating and uses a walker. VITAL SIGNS: Blood pressure 130/70, pulse of 70, oxygen saturation 97% on room air. LUNGS: Clear. HEART: Regular and rhythmic. No murmurs. ABDOMEN: Soft. No masses, no tenderness, and no CVA tenderness. EXTREMITIES: Showed +1 edema. IMPRESSION: Right hydronephrosis and hydroureter secondary to a distal right ureteral stricture. PLAN: For cystoscopy and placement of right ureteral stent. I discussed the above plans with the patient. All her questions were answered. [id number]/[facility] #: [id number] MTDD
[~2018-03-14 11:05] MED LIST changes: -Metoclopramide TAB* 10 MG PO ONE
[2018-03-14] MEDS ORDERED: Famotidine IV* 10 MG/ML 2 ML (20 mg) ONE (11:31)
[2018-03-14] MEDS ORDERED: cefTRIAXone(*) 1 GM ADVAN/BAG ONE (11:32)
[2018-03-14] MEDS ORDERED: Naloxone* 0.4 MG/ML 1 ML VIAL IV PRN (13:27)
[2018-03-14] MEDS ORDERED: Ketorolac INJ* 30 MG/ML 1 ML VIAL IV PRN (13:27)
[2018-03-14] MEDS ORDERED: fentaNYL* 50 MCG/ML 2 ML VIAL (100 MCG VIAL) IV PRN (13:27)
[2018-03-14] MEDS ORDERED: Propofol* 10 MG/ML 20 ML BTL IV PUSH ONE (13:30)
[2018-03-14] MEDS ORDERED: Ondansetron INJ* 2 MG/ML VIAL ONE (13:30)
--- NOTE | 2018-03-14 14:22 | RAD ---
INDICATION: RIGHT ureteral stent placement. Technique: 9 seconds of?fluoroscopy?was provided?for the physician proceduralist. REPORT: Spot images document a RIGHT retrograde pyelogram, severe pelvicaliectasis, and subsequent ureteral stent placement. IMPRESSION: Procedural control films. CPT II Codes: G9500
[2018-03-14 14:44] VITALS: BP 164/69
--- NOTE | 2018-03-15 04:58 | OP ---
CC: Dr. Ro OPERATIVE REPORT: DATE OF OPERATION: 03/14/17 DATE OF : 28 SURGEON: Abel Marcelino MD ANESTHESIOLOGIST: Dr. Cristino Giordano. ANESTHESIA: General. PRE-OP DIAGNOSES: 1. Distal right ureteral stricture. 2. Right hydroureteronephrosis due to distal right ureteral stricture. POST-OP DIAGNOSES: 1. Distal right ureteral stricture. 2. Right hydroureteronephrosis due to distal right ureteral stricture. OPERATIVE PROCEDURE: 1. Cystoscopy. 2. Right ureteroscopy. 3. Balloon dilation, distal right ureteral stricture. 4. Right retrograde pyelography and placement of right ureteral stent (black silicone, 8.5-Khmer, 24 cm). INDICATION FOR PROCEDURE: Ms. Doran is an 87-year-old white female, who had an impacted distal right ureteral calculus that was treated with ureteroscopy and laser lithotripsy in April 2016. She had another impacted calculus in the distal right ureter measuring 8 mm in July 2016, again requiring ureteroscopy laser litho and stent insertion. Following removal of the stent, the patient was noted to have right hydroureteronephrosis, and no calculi were seen. In April 2017, she had right ureteroscopy, which showed stricture in the distal right ureter. The stricture was balloon dilated and stent placed. The stent was removed 2 months later and the patient was followed with serial renal ultrasounds. The hydronephrosis has slowly recurred and the recent renal ultrasound showed [id number] right hydroureteronephrosis. Diuretic and nuclear renal scan showed decreased renal function and there was an obstructive pattern of the drainage of the right kidney with the T1/2 in excess of 20 minutes. Because of the above findings and after discussing the options of conservative management versus stent drainage, the above procedure was advised and accepted. PATHOLOGY AT CYSTOSCOPY: The bladder mucosa looked normal. There were no suspicious bladder lesions seen. Both ureteral orifices looked normal. Upon right retrograde pyelography, there was moderate to severe right hydroureteronephrosis all the way to just proximal to the ureteral orifice. Upon right ureteroscopy, a tight stricture was noted just proximal to the orifice. On balloon dilation, there was a strictured segment measuring about half a centimeter in size in the distal ureter consistent with the stricture noted. DESCRIPTION OF PROCEDURE: After successful general anesthesia, the patient was placed in the lithotomy position and was prepped and draped for a cystoscopy. The cystoscope was performed. The bladder was carefully inspected and the above findings were noted. A flexible-tip guidewire was then introduced into the right orifice. An open- ended catheter was fed on top of the guidewire and positioned in the distal ureter. Retrograde pyelography was performed demonstrating the dilated ureter. With the guidewire in place, a size 6.5 semirigid ureteroscope was introduced inside the bladder. A flexible tip guidewire was then introduced through the port of the ureteroscope and the guidewire was introduced into the right orifice allowing the atraumatic introduction of the ureteroscope in the ureter. A stricture was encountered about 1 cm proximal to the orifice. No calculus, lesion, or tumor was seen at the site of the obstruction. The ureter above the stricture was dilated and the mucosa looked normal. The ureteroscope was then removed keeping the guidewire in place. The cystoscope was then reintroduced over the guidewire. A balloon dilator was then fed on top of the guidewire and the balloon was positioned in the distal ureter. The balloon was then inflated manually. Waisting was noted in the distal ureter and in spite of the dilation, the caliber of the ureter was only about 35% of the caliber of the ureter above and below the stricture. The balloon dilator was then deflated and removed. A black silicone stent, 24 cm long, 8.5-Khmer was then positioned with the proximal end coiling in the renal pelvis and the distal end coiling inside the bladder. There was good drainage of contrast from the kidney. The patient tolerated the procedure well and left the operating room in good condition. From the appearance of the dilation, the stricture seems to be tight and not responding to the balloon dilation. Considering the patient's age, the most conservative management will be chronic stent drainage. I will see her back in 3 months for reevaluation, earlier if needed. [id number] #: [id number] MARLENE
== END 2018-03-14 15:05 | disposition home or self-care (01) ==
LOC: OR 11:05
PROVIDERS: ATTEND Urology
DX: N13.1 Hydronephrosis with ureteral stricture, not elsewhere classified (principal); Z87.442 Personal history of urinary calculi; E11.9 Type 2 diabetes mellitus without complications; Z79.84 Long term (current) use of oral hypoglycemic drugs; I10 Essential (primary) hypertension; E03.9 Hypothyroidism, unspecified; E78.5 Hyperlipidemia, unspecified; Z95.0 Presence of cardiac pacemaker; G47.33 Obstructive sleep apnea (adult) (pediatric); F41.8 Other specified anxiety disorders; D64.9 Anemia, unspecified
CPT/HCPCS: 74420; C1876; J0696; J2405; J2704

== ENCOUNTER 2018-04-28 12:13 | Emergency (ER) | payer MEDICARE, BC ==
--- OUTSIDE RECORDS SUMMARY | 2018-04-28 12:56 | XMS REPORT ---
:1930 External Reference #:[id number] Author Organization [facility] 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 Ernestine Perera MD Primary Care Physician Unavailable Payers Type Date Identification Numbers Payment Provider Subscriber Medicare Primary Policy Number: [id number] Medicare Livia Doran PayID: [id number] [address] [place] [address] Medigap Part B Expires: 2008 Policy Number: [id number] [facility] Livia Doran Group Number: [id number] [address] [address] PayID: [id number] [place] [address] Medigap Part B Expires: 2014 Policy Number: Jadwin Andre Doran [id number] [facility] PayID: [id number] [address] [place] [id number] Medigap Part B Policy Number: [id number] [facility] Livia Doran PayID: [id number] [address] [place] [id number] Problems Date Description Provider Status Onset: 10/12/2013 Acquired trigger finger Denis Aguilar MD, Active FACS Onset: 11/16/2013 History and physical examination, Denis Aguilar MD, Active follow-up FACS Onset: 09/24/2014 Arthralgia of the pelvic region Nigel Delgado M.D. Active and thigh Onset: 09/24/2014 Low back pain Nigel Delgado M.D. 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 Onset: 10/15/2014 Myalgia & Myositis Unspec Niurka Osorio MD Active Onset: 05/26/2015 Lumbar spondylosis Mio Crump MD Active Onset: 03/27/2017 Digestive symptom Micky Kenney MD Active Onset: 03/27/2017 Heartburn Micky Kenney MD Active Onset: 04/12/2017 Gastrointestinal tract finding Micky Kenney MD Active Onset: 07/03/2017 Hyperlipidemia Ernestine Perera MD Active Onset: 07/03/2017 Type 2 diabetes mellitus Ernestine Perera MD Active Onset: 07/03/2017 Hypothyroidism Ernestine Perera MD Active Onset: 07/03/2017 Kidney stone Ernestine Perera MD Active Onset: 10/02/2017 Liver function tests abnormal Ernestine Perera MD Active Onset: 10/02/2017 Chronic kidney disease stage 3 Ernestine Perera MD Active Onset: 08/06/2016 Benign essential hypertension Micky Kenney MD Active Onset: 08/06/2016 Mixed hyperlipidemia Micky Kenney MD Active Onset: 04/16/2018 Lumbosacral stenosis Ernestine Perera MD Active Onset: 04/16/2018 Rheumatoid arthritis Ernestine Perera MD Active Family History Date Family Member(s) Problem(s) Comments General Cancer General Diabetes General Non Contributory Social History Type Date Description Comments Education Currenlty attending 12th grade Marital Status Lives With Alone Home Environment Lives Alone Diet Patient follows no dietary restrictions 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 Work Status Retired Years Employed over 30 years Hand Dominance Right-handed Drive Patient drives Cigarette Use Never Smoked Cigarettes ETOH Use Denies alcohol use Smoking Patient has never smoked Recreational Drug Use Denies Drug Use Daily Caffeine Patient consumes minimal amounts of caffeine Allergies, Adverse Reactions, Alerts Date Description Reaction Status Severity Comments 10/15/2014 NKDA active 05/26/2015 Seasonal active 10/12/2013 NKDA inactive Medications Medication Date Status Form Strength Qnty SIG Indications Ordering Provider Vitamin D3 04/16 Active Capsules 2000Unit 1 by mouth Dilma, every day MD Ernestine Onetouch Verio 01/17 Active Kit w/Device 1unit Use for Gagen, Flex Bloodglucose /2018 s glucose Latesha Monitoring System monitoring e, MS, 1-3 times a DEBURRER STRIP-C, week and as CNM needed DX: E11.9 type 2 diabetes without complicatio ns Levothyroxine Active Tablets 150mcg 90tab 1 tab by Dilma, Sodium / s mouth every MD Ernestine day Metformin HCL ER Active Tablets 500mg 180ta 1 tab by Dilma, /0000 ER 24HR bs mouth twice MD Ernestine a day New Aspirin Active Tablets 325mg 1 po qd Unknown Vitamin B-12 Active Tablets 1000mcg po qd Sub Pantoprazole Active Tablets 40mg 90tab 1 by mouth Dilma, Sodium DR s every day MD Ernestine Latanoprost Active Solution 0.005% 1 gtt ou at [facility] , Latesha medeiros MD Timolol Maleate Active GFS 0.5% 1 gtt ou [facility] Ophthalmic Gel qam , Forming Latesha medeiros MD Gabapentin Active Capsules 300mg 180ca take one Dilma, /0000 ps capsule by MD Ernestine mouth twice a day True Metrix Blood Active Strips 300un use for Dilma, Glucosetest Strips / its glucose MD Ernestine monitoring 1-3 x per week and as needed. Lancets 30G Active Misc 30G 300un use for Dilma, /0000 its glucose MD Ernestine monitoring 1-3 x per week and as needed. Losartan Potassium Active Tablets 50mg 90tab Take One Dilma, /0000 s Tablet By MD Ernestine Mouth Every Day Duloxetine HCL Active Caps DR 60mg 90cap Take One Dilma, /0000 Part s Capsule By MD Ernetsine Mouth Every Day Simvastatin Active Tablets 40mg 90tab Take One Dilma, /0000 s Tablet By MD Ernestine Mouth Every Day Hydroxychloroquine Active Tablets 200mg Take One Unknown Sulfate 0000 Tablet By Mouth Every Day Miralax 03/27 Hx Powder 3350NF 1unit Please give s 255gmof MD Pablito - miralax and 07/03 mix with ounces of whatever she wants to drink Vitamin D3 05/05 Hx Chewtabs 5000Unit 2000 unit 3 , x daily Denis Abbasi - , FACS 04/16 Meloxicam Hx Tablets 15mg 30tab 1 po q day Unknown /0000 s c food - 10/[address] 60mg 30cap 1 po qd Unknown /0000 Part s - 08/10 Citracal Calcium+D Hx Tablets 1200mg 1 po qd Unknown Slow Release / ER 24HR - 08/10 Tramadol HCL Hx Tablets 200mg as needed Unknown /0000 - 06/29 Aleve Hx Tablets 220mg 1 by mouth Unknown / every day - as needed 04/16 Vital Signs Date Vital Result Comment 04/16/2018 BP Systolic Sitting Right Arm 151 mmHg BP Diastolic Sitting Right Arm 67 mmHg Body Temperature 97.0 F Heart Rate 59 /min Respiratory Rate 16 /min Height 62 inches 5'2" Weight 214.00 lb BMI (Body Mass Index) 39.1 kg/m2 BSA (Body Surface Area) 1.97 m2 Benton body weight in kilograms 50 O2 % BldC Oximetry 97 % 01/14/2018 BP Systolic 143 mmHg BP Diastolic 59 mmHg Body Temperature 97.9 F Heart Rate 74 /min Respiratory Rate 19 /min Height 62 inches 5'2" Weight 215.00 lb BMI (Body Mass Index) 39.3 kg/m2 BSA (Body Surface Area) 1.97 m2 Benton body weight in kilograms 50 O2 % BldC Oximetry 93 % 10/02/2017 BP Systolic 134 mmHg BP Diastolic 63 mmHg Body Temperature 97.7 F Heart Rate 81 /min Respiratory Rate 17 /min Weight 217.00 lb O2 % BldC Oximetry 94 % Room Air 07/09/2017 BP Systolic 145 mmHg BP Diastolic 71 mmHg Heart Rate 59 /min 07/03/2017 BP Systolic 135 mmHg BP Diastolic 57 mmHg BP Systolic Sitting Right Arm 116 mmHg laying BP Diastolic Sitting Right Arm 46 mmHg laying BP Systolic Sitting Left Arm 119 mmHg sitting BP Diastolic Sitting Left Arm 63 mmHg sitting Heart Rate 59 /min Respiratory Rate 14 /min Height 62 inches 5'2" 5'2 Per Patient Weight 213.25 lb BMI (Body Mass Index) 39.0 kg/m2 BSA (Body Surface Area) 1.96 m2 Benton body weight in kilograms 50 O2 % BldC Oximetry 95 % 06/26/2017 BP Systolic Sitting Left Arm 144 mmHg BP Diastolic Sitting Left Arm 68 mmHg Heart Rate 73 /min Height 62 inches 5'2" 5'2 Per Patient Weight 211.00 lb BMI (Body Mass Index) 38.6 kg/m2 BSA (Body Surface Area) 1.96 m2 Benton body weight in kilograms 50 06/19/2017 BP Systolic Sitting Right Arm 137 mmHg BP Diastolic Sitting Right Arm 60 mmHg Body Temperature 97.6 F Heart Rate 58 /min Respiratory Rate 20 /min Height 62 inches 5'2" 5'2 Per Patient Weight 211.00 lb BMI (Body Mass Index) 38.6 kg/m2 BSA (Body Surface Area) 1.96 m2 Benton body weight in kilograms 50 04/12/2017 BP Systolic Sitting Left Arm 132 mmHg BP Diastolic Sitting Left Arm 62 mmHg Heart Rate 46 /min Respiratory Rate 16 /min Height 62 inches 5'2" 5'2 Per Patient Weight 213.00 lb BMI (Body Mass Index) 39.0 kg/m2 BSA (Body Surface Area) 1.96 m2 Benton body weight in kilograms 50 04/02/2017 BP Systolic 144 mmHg BP Diastolic 57 mmHg Heart Rate 61 /min Weight 211.38 lb 03/27/2017 BP Systolic Sitting Left Arm 130 mmHg BP Diastolic Sitting Left Arm 64 mmHg Heart Rate 66 /min Respiratory Rate 18 /min Weight 215.00 lb 08/10/2016 BP Systolic 140 mmHg BP Diastolic 64 mmHg Weight 223.00 lb 07/07/2015 BP Systolic 124 mmHg BP Diastolic 68 mmHg Height 62.5 inches 5'2.50" Weight 227.00 lb BMI (Body Mass Index) 40.9 kg/m2 BSA (Body Surface Area) 2.03 m2 06/30/2015 BP Systolic 124 mmHg BP Diastolic 64 mmHg Height 62.5 inches 5'2.50" Weight 227.00 lb BMI (Body Mass Index) 40.9 kg/m2 BSA (Body Surface Area) 2.03 m2 05/26/2015 BP Systolic 122 mmHg BP Diastolic 62 mmHg Height 62.5 inches 5'2.50" Weight 227.00 lb BMI (Body Mass Index) 40.9 kg/m2 BSA (Body Surface Area) 2.03 m2 12/08/2014 Height 62.5 inches 5'2.50" Weight 227.00 lb BMI (Body Mass Index) 40.9 kg/m2 BSA (Body Surface Area) 2.03 m2 10/15/2014 Heart Rate 66 /min Height 62.5 inches 5'2.50" Weight 227.00 lb BMI (Body Mass Index) 40.9 kg/m2 BSA (Body Surface Area) 2.03 m2 07/14/2014 BP Systolic Sitting Left Arm 110 mmHg BP Diastolic Sitting Left Arm 70 mmHg Height 62 inches 5'2" Weight 228.00 lb BMI (Body Mass Index) 41.7 kg/m2 BSA (Body Surface Area) 2.02 m2 10/12/2013 BP Systolic Sitting Left Arm 118 mmHg BP Diastolic Sitting Left Arm 62 mmHg Height 62.5 inches 5'2.50" Weight 227.00 lb BMI (Body Mass Index) 40.9 kg/m2 BSA (Body Surface Area) 2.03 m2 Results Test Date Test Result H/L Range Note Glycohemoglobin A1c 04/11/2018 Glycohemoglobin (A1c) 6.1 % 4.2-6.3 1, 2 eAG 128 mg/dL 1 Basic Metabolic Panel 04/11/2018 Glucose 129 mg/dL High 74-106 1 BUN 23 mg/dL High 7-18 1 Creatinine 1.4 mg/dL High 0.6-1.3 1 Glom Filtration Rate, Estimate 38 mL/min >60 1 If 46 mL/min >60 1, 3 BUN/Creat 16.4 ratio 1 Sodium 140 mmol/L 136-145 1 Potassium 4.4 mmol/L 3.5-5.1 1 Chloride 105 mmol/L 98-107 1 Carbon Dioxide 29 mmol/L 21-32 1 Anion Gap 6 mEq/L Low 8-16 1 Calcium 9.5 mg/dL 8.5-10.1 1 LDL Cholesterol Profile 04/11/2018 Cholesterol 162 mg/dL <200 1, 4 Triglycerides 196 mg/dL High <150 1, 5 HDL Cholesterol 47 mg/dL >40 1, 6 LDL-Cholesterol 76 mg/dL < 100 1, 7 CBS W/Automated Diff 04/11/2018 White Blood Count 7.4 K/uL 3.1-10.7 1 Red Blood Count 4.23 M/uL 3.90-5.40 1 Hemoglobin 12.0 gm/dL 11.6-15.8 1 Hematocrit 36.7 % 36.0-46.1 1 Mean Cell Volume 86.8 fl 80.9-99.0 1 Mean Corpuscular HGB 28.4 pg 25.9-32.7 1 Mean Corpuscular HGB Conc 32.7 g/dL 30.8-34.3 1 Platelet Count 113 K/uL Low 155-360 1 Red Cell Distri Width SD 46.6 fl 3-47 1 Red Cell Distri Width %CV 15.0 % High 11.7-14.4 1 Mean Platelet Volume 12.9 fL High 8.9-12.4 1 Neut% 66.1 % 40.4-72.8 1 Lymph % 23.2 % 20.0-42.0 1 Tyrrell % 7.0 % 4.3-13.2 1 Eo% 3.0 % 0.0-6.6 1 Bas% 0.7 % 0.0-1.1 1 Neut# 4.89 K/uL 1.8-7.0 1 Lymph # 1.72 K/uL 1.0-4.0 1 Tyrrell # 0.52 K/uL 0.3-0.9 1 Eos # 0.22 K/uL 0.0-0.5 1 Baso # 0.05 K/uL 0.0-0.1 1 Laboratory test finding 04/11/2018 PTH,Intact 40 pg/mL 15-65 1, 8 Magnesium 1.8 mg/dL 1.8-2.4 1 Protein/Creatinine Ratio,Urine 04/11/2018 Creatinine,Urine 96.1 mg/dL Not Estab. 1 Protein,Total,Urine 63.4 mg/dL Not Estab. 1 Protein/Creatinine Ratio 660 MG/GCRE High 0-200 1, 9 Laboratory test 04/11/2018 Vitamin D,25-Hydroxy 45.2 ng/mL 30.0-100.0 1 , 10 finding Laboratory test 03/14/2018 Point of Care Glucose 101 mg/dL High 70-100 11 finding Basic Metabolic 02/20/2018 Sodium 139 mmol/L 135-145 Panel Potassium 4.6 mmol/L 3.5-5.0 Chloride 101 mmol/L 101-111 Co2 Carbon Dioxide 28 mmol/L 22-32 Anion Gap 10 mmol/L 2-11 Glucose 148 mg/dL High 70-100 Blood Urea Nitrogen 26 mg/dL High 6-24 Creatinine 1.33 mg/dL High 0.51-0.95 BUN/Creatinine Ratio 19.5 8-20 Calcium 9.9 mg/dL 8.6-10.3 Egfr Non- 37.7 >60 Egfr 45.6 >60 12 Laboratory test 01/14/2018 Anti-Nuclear Negative AU/mL Negative 13, 14 finding Antibodies Direct Sedimentation Rate 18 mm/hr 0-30 13, 15 CCP Igg/Iga 01/14/2018 CCP Igg/Iga 13 units 0-19 13, 16 Antibodies Antibodies Laboratory test 01/14/2018 Rheumatoid Factor 185.0 IU/mL High 0.0-15.0 13 finding Screen Ayala/Pe,Random Urine 12/24/2017 Protein,Total,Urine 19.5 mg/dL Not Estab. 17 Albumin,U 53.5 % . 17 Pibxy-5-Xgrcpihc,U 3.5 % . 17 Vppzd-1-Hkyeveei,U 10.9 % . 17 Beta Globulin,U 19.3 % . 17 Gamma Globulin,U 12.8 % . 17 M-Ivan,% Not Observed % Not Observed 17 Immunofixation Result (SEE NOTE) 17, 18 Note: (SEE NOTE) 17, 19 PDF. . 17, 20 Protein Electro.,S 12/24/2017 Protein,Total,Serum 6.2 g/dL 6.0-8.5 17 Albumin 3.4 g/dL 2.9-4.4 17 Llsci-2-Cvoxchhh 0.3 g/dL 0.0-0.4 17 Kjiin-8-Akhfggrf 0.8 g/dL 0.4-1.0 17 Beta Globulin 1.0 g/dL 0.7-1.3 17 Gamma Globulin 0.8 g/dL 0.4-1.8 17 M-Ivan Not Observed g/dL Not Observed 17 Globulin, Total 2.8 g/dL 2.2-3.9 17 A/G Ratio 1.2 0.7-1.7 17 Please Note: (SEE NOTE) 17, 21 P E Interpretation, Serum (SEE NOTE) 17, 22 PDF . 17, 23 Laboratory test finding 12/24/2017 PTH,Intact 49 pg/mL 15-65 17, 24 Glycohemoglobin A1c 12/24/2017 Glycohemoglobin (A1c) 5.9 % 4.2-6.3 17, 25 eAG 123 mg/dL 17 Comprehensive Metabolic Panel 12/19/2017 Glucose 119 mg/dL High 74-106 26 BUN 20 mg/dL High 7-18 26 Creatinine 1.4 mg/dL High 0.6-1.3 26 Glom Filtration Rate, Estimate 38 mL/min >60 26 If 46 mL/min >60 26, 27 BUN/Creat 14.2 ratio 26 Sodium 143 mmol/L 136-145 26 Potassium 4.2 mmol/L 3.5-5.1 26 Chloride 106 mmol/L 98-107 26 Carbon Dioxide 28 mmol/L 21-32 26 Anion Gap 9 mEq/L 8-16 26 Calcium 9.2 mg/dL 8.5-10.1 26 Total Protein 6.7 g/dL 6.4-8.2 26 Albumin 3.6 g/dL 3.4-5.0 26 Globulin 3.1 g/dL 1.9-4.3 26 Alb/Glob 1.2 ratio 26 Bilirubin,Total 0.8 mg/dL 0.2-1.0 26 Sgot/Ast 24 U/L 15-37 26 SGPT/Alt 18 U/L 12-78 26 Alkaline Phosphatase 95 U/L 45-117 26 LDL Cholesterol Profile 12/19/2017 Cholesterol 140 mg/dL <200 26, 28 Triglycerides 167 mg/dL High <150 26, 29 HDL Cholesterol 41 mg/dL >40 26, 30 LDL-Cholesterol 66 mg/dL < 100 26, 31 Laboratory test finding 12/19/2017 Thyroid Stim Hormone 1.13 uIU/mL 0.30- 4.20 26 Free T4 1.21 ng/dL 0.76-1.46 26 Gamma Glutamyl Transpeptidase 38 U/L 5-85 26 Vitamin D,25-Hydroxy 51.8 ng/mL 30.0-100.0 26, 32 Creatinine 12/10/2017 Creatinine 1.36 mg/dL High 0.51-0.95 Egfr Non- 36.7 >60 Egfr 44.4 >60 33 Comprehensive Metabolic Panel 09/26/2017 Glucose 142 mg/dL High 74-106 34 BUN 22 mg/dL High 7-18 34 Creatinine 1.4 mg/dL High 0.6-1.3 34 Glom Filtration Rate, Estimate 38 mL/min >60 34 If 46 mL/min >60 34, 35 BUN/Creat 15.7 ratio 34 Sodium 140 mmol/L 136-145 34 Potassium 4.3 mmol/L 3.5-5.1 34 Chloride 104 mmol/L 98-107 34 Carbon Dioxide 28 mmol/L 21-32 34 Anion Gap 8 mEq/L 8-16 34 Calcium 9.5 mg/dL 8.5-10.1 34 Total Protein 7.1 g/dL 6.4-8.2 34 Albumin 4.0 g/dL 3.4-5.0 34 Globulin 3.1 g/dL 1.9-4.3 34 Alb/Glob 1.3 ratio 34 Bilirubin,Total 0.9 mg/dL 0.2-1.0 34 Sgot/Ast 23 U/L 15-37 34 SGPT/Alt 22 U/L 12-78 34 Alkaline Phosphatase 126 U/L High 45-117 34 Glycohemoglobin A1c 09/26/2017 Glycohemoglobin (A1c) 6.8 % High 4.2-6.3 34, 36 eAG 148 mg/dL 34 Laboratory test finding 09/26/2017 Thyroid Stim Hormone 5.53 uIU/mL High 0.30-4.20 34 Free T4 1.04 ng/dL 0.76-1.46 34 CBS W/Automated Diff 09/26/2017 White Blood Count 10.1 K/uL 3.1-10.7 34 Red Blood Count 4.59 M/uL 3.90-5.40 34 Hemoglobin 12.7 gm/dL 11.6-15.8 34 Hematocrit 39.5 % 36.0-46.1 34 Mean Cell Volume 86.1 fl 80.9-99.0 34 Mean Corpuscular HGB 27.7 pg 25.9-32.7 34 Mean Corpuscular HGB Conc 32.2 g/dL 30.8-34.3 34 Platelet Count 162 K/uL 155-360 34 Red Cell Distri Width SD 47.2 fl High 3-47 34 Red Cell Distri Width %CV 15.3 % High 11.7-14.4 34 Mean Platelet Volume 12.1 fL 8.9-12.4 34 Neut% 75.5 % High 40.4-72.8 34 Lymph % 14.9 % Low 20.0-42.0 34 Tyrrell % 6.5 % 4.3-13.2 34 Eo% 2.7 % 0.0-6.6 34 Bas% 0.4 % 0.0-1.1 34 Neut# 7.66 K/uL High 1.8-7.0 34 Lymph # 1.51 K/uL 1.0-4.0 34 Tyrrell # 0.66 K/uL 0.3-0.9 34 Eos # 0.27 K/uL 0.0-0.5 34 Baso # 0.04 K/uL 0.0-0.1 34 Slide Review 09/26/2017 Slide Review (SEE NOTE) 34, 37 Laboratory test finding 06/27/2017 Ferritin 69 ng/mL 8-252 38 Iron-Tibc-%Sat 06/27/2017 Serum Iron 62 g/dL 50-170 38 Total Iron Binding Capacity 348 g/dL 250-450 38 Transferrin %Saturation 18 % 12-57 38 Comprehensive Metabolic Panel 06/27/2017 Glucose 128 mg/dL High 74-106 38 BUN 29 mg/dL High 7-18 38 Creatinine 1.2 mg/dL 0.6-1.3 38 Glom Filtration Rate, Estimate 45 mL/min >60 38 If 55 mL/min >60 38, 39 BUN/Creat 24.1 ratio 38 Sodium 140 mmol/L 136-145 38 Potassium 4.5 mmol/L 3.5-5.1 38 Chloride 103 mmol/L 98-107 38 Carbon Dioxide 30 mmol/L 21-32 38 Anion Gap 7 mEq/L Low 8-16 38 Calcium 9.5 mg/dL 8.5-10.1 38 Total Protein 6.6 g/dL 6.4-8.2 38 Albumin 3.5 g/dL 3.4-5.0 38 Globulin 3.1 g/dL 1.9-4.3 38 Alb/Glob 1.1 ratio 38 Bilirubin,Total 0.8 mg/dL 0.2-1.0 38 Sgot/Ast 24 U/L 15-37 38 SGPT/Alt 24 U/L 12-78 38 Alkaline Phosphatase 111 U/L 45-117 38 LDL Cholesterol Profile 06/27/2017 Cholesterol 182 mg/dL <200 38, 40 Triglycerides 171 mg/dL High <150 38, 41 HDL Cholesterol 52 mg/dL >40 38, 42 LDL-Cholesterol 96 mg/dL < 100 38, 43 Glycohemoglobin A1c 06/27/2017 Glycohemoglobin (A1c) 6.3 % 4.2-6.3 38, 44 eAG 134 mg/dL 38 Laboratory test 06/27/2017 Vitamin D,25-Hydroxy 39.9 ng/mL 30.0-100.0 38 , 45 finding Thyroid Stim Hormone 1.23 uIU/mL 0.30-4.20 38 Free T4 1.08 ng/dL 0.76-1.46 38 CBS W/Automated Diff 06/27/2017 White Blood Count 6.7 K/uL 3.1-10.7 38 Red Blood Count 4.17 M/uL 3.90-5.40 38 Hemoglobin 11.9 gm/dL 11.6-15.8 38 Hematocrit 36.8 % 36.0-46.1 38 Mean Cell Volume 88.2 fl 80.9-99.0 38 Mean Corpuscular HGB 28.5 pg 25.9-32.7 38 Mean Corpuscular HGB Conc 32.3 g/dL 30.8-34.3 38 Platelet Count 122 K/uL Low 155-360 38 Red Cell Distri Width SD 49.3 fl High 3-47 38 Red Cell Distri Width %CV 15.7 % High 11.7-14.4 38 Mean Platelet Volume 12.2 fL 8.9-12.4 38 Neut% 69.7 % 40.4-72.8 38 Lymph % 18.5 % Low 20.0-42.0 38 Tyrrell % 8.3 % 4.3-13.2 38 Eo% 3.2 % 0.0-6.6 38 Bas% 0.3 % 0.0-1.1 38 Neut# 4.64 K/uL 1.8-7.0 38 Lymph # 1.23 K/uL 1.0-4.0 38 Tyrrell # 0.55 K/uL 0.3-0.9 38 Eos # 0.21 K/uL 0.0-0.5 38 Baso # 0.02 K/uL 0.0-0.1 38 Glycohemoglobin A1c 04/02/2017 Glycohemoglobin (A1c) 6.3 % 4.2-6.3 46, 47 eAG 134 mg/dL 46 Comprehensive Metabolic Panel 04/02/2017 Glucose 115 mg/dL High 74-106 46 BUN 25 mg/dL High 7-18 46 Creatinine 1.1 mg/dL 0.6-1.3 46 Glom Filtration Rate, Estimate 50 mL/min >60 46 If 60 mL/min >60 46, 48 BUN/Creat 22.7 ratio 46 Sodium 143 mmol/L 136-145 46 Potassium 4.2 mmol/L 3.5-5.1 46 Chloride 106 mmol/L 98-107 46 Carbon Dioxide 27 mmol/L 21-32 46 Anion Gap 10 mEq/L 8-16 46 Calcium 9.8 mg/dL 8.5-10.1 46 Total Protein 6.7 g/dL 6.4-8.2 46 Albumin 3.7 g/dL 3.4-5.0 46 Globulin 3.0 g/dL 1.9-4.3 46 Alb/Glob 1.2 ratio 46 Bilirubin,Total 0.8 mg/dL 0.2-1.0 46 Sgot/Ast 27 U/L 15-37 46 SGPT/Alt 21 U/L 12-78 46 Alkaline Phosphatase 99 U/L 45-117 46 CBS W/Automated Diff 04/02/2017 White Blood Count 7.1 K/uL 3.1-10.7 46 Red Blood Count 3.95 M/uL 3.90-5.40 46 Hemoglobin 11.5 gm/dL Low 11.6-15.8 46 Hematocrit 35.1 % Low 36.0-46.1 46 Mean Cell Volume 88.9 fl 80.9-99.0 46 Mean Corpuscular HGB 29.1 pg 25.9-32.7 46 Mean Corpuscular HGB Conc 32.8 g/dL 30.8-34.3 46 Platelet Count 118 K/uL Low 150-400 46 Red Cell Distri Width SD 45.1 fl 3-47 46 Red Cell Distri Width %CV 14.3 % 11.7-14.4 46 Mean Platelet Volume 13.3 fL High 8.9-12.4 46 Neut% 66.5 % 40.4-72.8 46 Lymph % 24.5 % 20.0-42.0 46 Tyrrell % 7.3 % 4.3-13.2 46 Eo% 1.3 % 0.0-6.6 46 Bas% 0.4 % 0.0-1.1 46 Neut# 4.74 K/uL 1.8-7.0 46 Lymph # 1.75 K/uL 1.0-4.0 46 Tyrrell # 0.52 K/uL 0.3-0.9 46 Eos # 0.09 K/uL 0.0-0.5 46 Baso # 0.03 K/uL 0.0-0.1 46 Laboratory test finding 04/02/2017 Thyroid Stim Hormone 1.11 uIU/mL 0.30- 4.20 46 Free T4 1.30 ng/dL 0.76-1.46 46 Vitamin D,25-Hydroxy 47.5 ng/mL 30.0-100.0 46, 49 LDL Cholesterol Profile 04/02/2017 Cholesterol 144 mg/dL <200 46, 50 Triglycerides 112 mg/dL <150 46, 51 HDL Cholesterol 55 mg/dL >40 46, 52 LDL-Cholesterol 67 mg/dL < 100 46, 53 Microalb/Creat 04/02/2017 Microalbumin/Creatinine Ratio 52.0 ug/mgCrt < 30.0 46 Ratio,Random Urine Creatinine Conc 115 mg/dL 46 Microalbumin,Random Urine 04/02/2017 Microalbumin,Urine 59.8 mg/L < 20.0 46 1 E11.9 E78.5 N18.3 2 Elevated levels of HbA1c suggest the need for more aggressive treatment of glycemia. The [place] [employer] Association recommends that a primary goal of therapy should be a HbA1c of <7% and that physicians should re-evaluate the treatment regimen in patients with HbA1c values consistently >8%. 3 Note: Persistent reduction for 3 months or more in an eGFR <60 mL/min/1.73 m2 defines CKD. Patients with eGFR values >/=60 mL/min/1.73 m2 may also have CKD if evidence of persistent proteinuria is present. The original MDRD equation for estimated GFR is not valid for patients less than 18 years of age. Additional information may be found at www.kdoqi.org. 4 Reference Guidelines*: Desirable: ........... < 200 mg/dL Borderline High: ..... 200-239 mg/dL High: ................ >=240 mg/dL * The National Cholesterol Education Program (NCEP) 5 Reference Guidelines*: Normal: ............. < 150 mg/dL Borderline High: .... 150-199 mg/dL High: ............... 200-499 mg/dL Very High: .......... > 500 mg/dL * Source: National Cholesterol Education Program (NCEP) 6 Reference Guidelines*: Low HDL: ..... < 40 mg/dL Normal: ..... 40-60 mg/dL Desirable: ... > 60 mg/dL *The National Cholesterol Education Program(NCEP) 7 Reference Guidelines*: Optimal:........... <100 mg/dL Near Optimal....... 100-129 mg/dL Borderline High.... 130-159 mg/dL High............... 160-189 mg/dL Very High.......... >=190 mg/dL * Source: National Cholesterol Education Program (NCEP) 8 Performed at: [facility] [address] [id number] [employer] Helper: Luana Guzman MD, Phone: [phone] INFCE Result Units: mg/g creat Performed at: [facility] [address] [id number] [employer] Helper: Luana Guzman MD, Phone: [phone] 10 Vitamin D deficiency has been defined by the [place] of [employer] and an Endocrine Society practice guideline as a level of serum 25-OH vitamin D less than 20 ng/mL (1,2). The Endocrine Society went on to further define vitamin D insufficiency as a level between 21 and 29 ng/mL (2). 1. IOM ([place] [employer]). 2010. Dietary reference intakes for calcium and D. [place]: The National Academies Press. 2. Param MF, [place], [place] TRIPATHI, et al. Evaluation, treatment, and prevention of vitamin D deficiency: an Endocrine Society clinical practice guideline. JCEM. 2010; 96(7):1911-30. Performed at: [address] [id number] [employer] Helper: Luana Guzman MD, Phone: [phone] 11 Utilization Review Rn: [id number] 12 Because ethnic data is not always readily available, this report includes an eGFR for both -Americans and non- Americans. The National Kidney Disease Education Program (NKDEP) does not endorse the use of the MDRD equation for patients that are not between the ages of 18 and 70, are , have extremes of body size, muscle mass, or nutritional status, or are non- or non-. According to the National Kidney Foundation, irrespective of diagnosis, the stage of the disease is based on the level of kidney function: Stage Description GFR(mL/min/1.73 m(2)) 1 Kidney damage with normal or decreased GFR 90 2 Kidney damage with mild decrease in GFR 60-89 3 Moderate decrease in GFR 30-59 4 Severe decrease in GFR 15-29 5 Kidney failure <15 (or dialysis) 13 M15.9 14 Performed at: [address] [id number] [employer] Helper: Yg Mao MD, Phone: [phone] Performed at: [address] [id number] [employer] Helper: Luana Guzman MD, Phone: [phone] 15 Method: Sediplast Modified Westergren 16 Negative <20 Weak positive 20 - 39 Moderate positive 40 - 59 Strong positive >59 17 E11.9 R94.5 18 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 19 Protein electrophoresis scan will follow via computer, mail, or industrial property appraiser delivery. 20 Performed at: [address] [id number] [employer] Helper: Luana Guzman MD, Phone: [phone] 21 Protein electrophoresis scan will follow via computer, mail, or industrial property appraiser delivery. 22 The SPE pattern appears essentially unremarkable. Evidence of monoclonal protein is not apparent. 23 Performed at: [address] [id number] [employer] Helper: Luana Guzman MD, Phone: [phone] 24 Performed at: [address] [id number] [employer] Helper: Luana Guzman MD, Phone: [phone] 25 Elevated levels of HbA1c suggest the need for more aggressive treatment of glycemia. The [place] [employer] recommends that a primary goal of therapy should be a HbA1c of <7% and that physicians should re-evaluate the treatment regimen in patients with HbA1c values consistently >8%. 26 E78.5 E03.9 E55.9 27 Note: Persistent reduction for 3 months or more in an eGFR <60 mL/min/1.73 m2 defines CKD. Patients with eGFR values >/=60 mL/min/1.73 m2 may also have CKD if evidence of persistent proteinuria is present. The original MDRD equation for estimated GFR is not valid for patients less than 18 years of age. Additional information may be found at www.kdoqi.org. 28 Reference Guidelines*: Desirable: ........... < 200 mg/dL Borderline High: ..... 200-239 mg/dL High: ................ >=240 mg/dL * The National Cholesterol Education Program (NCEP) 29 Reference Guidelines*: Normal: ............. < 150 mg/dL Borderline High: .... 150-199 mg/dL High: ............... 200-499 mg/dL Very High: .......... > 500 mg/dL * Source: National Cholesterol Education Program (NCEP) 30 Reference Guidelines*: Low HDL: ..... < 40 mg/dL Normal: ..... 40-60 mg/dL Desirable: ... > 60 mg/dL *The National Cholesterol Education Program(NCEP) 31 Reference Guidelines*: Optimal:........... <100 mg/dL Near Optimal....... 100-129 mg/dL Borderline High.... 130-159 mg/dL High............... 160-189 mg/dL Very High.......... >=190 mg/dL * Source: National Cholesterol Education Program (NCEP) 32 Vitamin D deficiency has been defined by the [place] [employer] and an Endocrine Society practice guideline as a level of serum 25-OH vitamin D less than 20 ng/mL (1,2). The Endocrine Society went on to further define vitamin D insufficiency as a level between 21 and 29 ng/mL (2). 1. IOM ([place] [employer]). 2010. Dietary reference intakes for calcium and D. [place]: The National [employer]. 2. Param MF, Iman [place], [place] TRIPATHI, et al. Evaluation, treatment, and prevention of vitamin D deficiency: an Endocrine Society clinical practice guideline. JCEM. 2010; 96(7):1911-30. Performed at: RN - [facility] [address] [id number] [employer] Helper: Luana Guzman MD, Phone: [phone] 33 Because ethnic data is not always readily available, this report includes an eGFR for both -Americans and non- Americans. The National Kidney Disease Education Program (NKDEP) does not endorse the use of the MDRD equation for patients that are not between the ages of 18 and 70, are , have extremes of body size, muscle mass, or nutritional status, or are non- or non-. According to the National Kidney Foundation, irrespective of diagnosis, the stage of the disease is based on the level of kidney function: Stage Description GFR(mL/min/1.73 m(2)) 1 Kidney damage with normal or decreased GFR 90 2 Kidney damage with mild decrease in GFR 60-89 3 Moderate decrease in GFR 30-59 4 Severe decrease in GFR 15-29 5 Kidney failure <15 (or dialysis) 34 E11.9 E03.9 D64.9 35 Note: Persistent reduction for 3 months or more in an eGFR <60 mL/min/1.73 m2 defines CKD. Patients with eGFR values >/=60 mL/min/1.73 m2 may also have CKD if evidence of persistent proteinuria is present. The original MDRD equation for estimated GFR is not valid for patients less than 18 years of age. Additional information may be found at www.kdoqi.org. 36 Elevated levels of HbA1c suggest the need for more aggressive treatment of glycemia. The [place] [employer] recommends that a primary goal of therapy should be a HbA1c of <7% and that physicians should re-evaluate the treatment regimen in patients with HbA1c values consistently >8%. 37 Instrument flagged sample for slide review. Less than 10% Bands seen, no other immature WBC's seen. RBC morphology essentially normal. Platelet estimate=NORMAL 38 E11.9 E78.5 E03.9 M47.26 D64.9 39 Note: Persistent reduction for 3 months or more in an eGFR <60 mL/min/1.73 m2 defines CKD. Patients with eGFR values >/=60 mL/min/1.73 m2 may also have CKD if evidence of persistent proteinuria is present. The original MDRD equation for estimated GFR is not valid for patients less than 18 years of age. Additional information may be found at www.kdoqi.org. 40 Reference Guidelines*: Desirable: ........... < 200 mg/dL Borderline High: ..... 200-239 mg/dL High: ................ >=240 mg/dL * The National Cholesterol Education Program (NCEP) 41 Reference Guidelines*: Normal: ............. < 150 mg/dL Borderline High: .... 150-199 mg/dL High: ............... 200-499 mg/dL Very High: .......... > 500 mg/dL * Source: National Cholesterol Education Program (NCEP) 42 Reference Guidelines*: Low HDL: ..... < 40 mg/dL Normal: ..... 40-60 mg/dL Desirable: ... > 60 mg/dL *The National Cholesterol Education Program(NCEP) 43 Reference Guidelines*: Optimal:........... <100 mg/dL Near Optimal....... 100-129 mg/dL Borderline High.... 130-159 mg/dL High............... 160-189 mg/dL Very High.......... >=190 mg/dL * Source: National Cholesterol Education Program (NCEP) 44 Elevated levels of HbA1c suggest the need for more aggressive treatment of glycemia. The [place] [employer] recommends that a primary goal of therapy should be a HbA1c of <7% and that physicians should re-evaluate the treatment regimen in patients with HbA1c values consistently >8%. 45 Vitamin D deficiency has been defined by the [place] [employer] and an Endocrine Society practice guideline as a level of serum 25-OH vitamin D less than 20 ng/mL (1,2). The Endocrine Society went on to further define vitamin D insufficiency as a level between 21 and 29 ng/mL (2). 1. IOM ([place] [employer]). 2010. Dietary reference intakes for calcium and D. [place]: The National Academies Press. 2. Iman Sorensen, [place] TRIPATHI, et al. Evaluation, treatment, and prevention of vitamin D deficiency: an Endocrine Society clinical practice guideline. JCEM. 2010; 96(7):1911-. Performed at: RN - [facility] [address] [id number] [employer]per: Luana Guzman MD, Phone: [phone] 46 E11.9 E78.5 E03.9 47 Elevated levels of HbA1c suggest the need for more aggressive treatment of glycemia. The [place] [employer] recommends that a primary goal of therapy should be a HbA1c of <7% and that physicians should re-evaluate the treatment regimen in patients with HbA1c values consistently >8%. 48 Note: Persistent reduction for 3 months or more in an eGFR <60 mL/min/1.73 m2 defines CKD. Patients with eGFR values >/=60 mL/min/1.73 m2 may also have CKD if evidence of persistent proteinuria is present. The original MDRD equation for estimated GFR is not valid for patients less than 18 years of age. Additional information may be found at www.kdoqi.org. 49 Vitamin D deficiency has been defined by the [place] [employer] and an Endocrine Society practice guideline as a level of serum 25-OH vitamin D less than 20 ng/mL (1,2). The Endocrine Society went on to further define vitamin D insufficiency as a level between 21 and 29 ng/mL (2). 1. IOM ([place] [employer]). 2010. Dietary reference intakes for calcium and D. [place]: The National Academies Press. 2. Iman Sorensen, [place] TRIPATHI, et al. Evaluation, treatment, and prevention of vitamin D deficiency: an Endocrine Society clinical practice guideline. JCEM. 2010; 96(7):1911-30. Performed at: RN - [facility] [address] [id number] [employer]: Luana Guzman MD, Phone: [phone] 50 Reference Guidelines*: Desirable: ........... < 200 mg/dL Borderline High: ..... 200-239 mg/dL High: ................ >=240 mg/dL * The National Cholesterol Education Program (NCEP) 51 Reference Guidelines*: Normal: ............. < 150 mg/dL Borderline High: .... 150-199 mg/dL High: ............... 200-499 mg/dL Very High: .......... > 500 mg/dL * Source: National Cholesterol Education Program (NCEP) 52 Reference Guidelines*: Low HDL: ..... < 40 mg/dL Normal: ..... 40-60 mg/dL Desirable: ... > 60 mg/dL *The National Cholesterol Education Program(NCEP) 53 Reference Guidelines*: Optimal:........... <100 mg/dL Near Optimal....... 100-129 mg/dL Borderline High.... 130-159 mg/dL High............... 160-189 mg/dL Very High.......... >=190 mg/dL * Source: National Cholesterol Education Program (NCEP) Procedures Date CPT Code Description Status Comment 01/08/2018 Diabetic Foot Exam Completed Document: 01/14/18 - Podiatry Form 06/19/2017 29966 Radiology, Foot, Complete-3 Completed Views 06/19/2017 11369 Radiology, Tibia And Fibula 2 Completed Views 01/04/2015 33742 Nerve Conduction 5-6 Studies Completed 01/04/2015 61639 Needle Electromyography Completed Complete, Five Or More Muscles Studied 10/08/2014 Bone Mineral Density Test Completed 09/24/2014 99828 Radiology, Hip Complete 2 Views Completed 09/24/2014 24697 Radiology, Hip Complete 2 Views Completed 09/24/2014 62138 Radiology, Pelvis 1 Or 2 Views Completed 07/27/2014 29762 Tendon Sheath Incision (eg for Completed trigger finger) 07/27/2014 90057 Anesthesia, Lower Arm Surgery Completed (Nerve,Muscle,Tendon,Fascia,Bur sa) 07/20/2014 30077 Anesthesia, Lower Arm Surgery Completed (Nerve,Muscle,Tendon,Fascia,Bur sa) 06/10/2014 Mammogram Completed advanced age 0511/03/2013 16710 Tendon Sheath Incision (eg for Completed trigger finger) 11/03/2013 20265 Anesthesia, Lower Arm Surgery Completed (Nerve,Muscle,Tendon,Fascia,Bur sa) 10/12/2013 63281 Radiology, Hand: Minimum Three Completed Views 08/01/2012 96825 Dual Pacemaker Programming Completed Anayisis, Review And Report 08/01/2012 97603 Dual Pacemaker Programming Completed Anayisis, Review And Report 04/11/2012 81917 Dual Pacemaker Programming Completed Anayisis, Review And Report 04/11/2012 06343 Dual Pacemaker Programming Completed Anayisis, Review And Report 12/21/2011 43811 Dual Pacemaker Programming Completed Anayisis, Review And Report 12/21/2011 10576 Dual Pacemaker Programming Completed Anayisis, Review And Report 08/10/2011 99138 Dual Pacemaker Programming Completed Anayisis, Review And Report 06/19/2011 11891 Asp./Injection major joint Completed 05/11/2011 06305 Dual Pacemaker Programming Completed Anayisis, Review And Report 03/29/2011 46942 Arthroplasty Shoulder Total Completed 01/23/2011 85717 Asp./Injection major joint Completed 11/23/2010 39797 Transtelephonic Pacemaker Eval Completed 11/23/2010 02446 Transtelephonic Pacemaker Eval Completed 09/27/2010 26181 Asp./Injection major joint Completed 08/18/2010 02882 Pacemaker Interrogaton Eval In Completed Person 05/02/2010 75003 Transtelephonic Pacemaker Eval Completed 05/02/2010 58928 Transtelephonic Pacemaker Eval Completed 01/20/2010 65697 Pacemaker Interrogaton Eval In Completed Person 10/18/2009 18984 Transtelephonic Pacemaker Eval Completed 10/18/2009 99620 Transtelephonic Pacemaker Eval Completed 07/22/2009 57945 Pacemaker Interrogaton Eval In Completed Person 04/26/2009 51070 Transtelephonic Pacemaker Eval Completed 04/26/2009 31836 Transtelephonic Pacemaker Eval Completed 01/14/2009 93602 Dual Pacemaker Programming Completed Anayisis, Review And Report 11/05/2008 13829 Echocardiogram Complete Completed 11/05/2008 44808 Stress Test Interpre And Report Completed Only 11/05/2008 25368 Stress Test Physician Super Completed Only 11/04/2008 27379 EKG Interpretation And Report Completed Only 10/26/2008 65940 Transtelephonic Pacemaker Eval Completed 08/03/2008 25343 Transtelephonic Pacemaker Eval Completed 05/11/2008 20141 Dualchamber Pacemaker Completed Telephonic 12/30/2007 39786 Dual Chamber Pacemaker Analysis Completed W/O Reprogramming 09/30/2007 51052 Dual Chamber Pacemaker With Completed Reprograming 11/05/2006 69832 Eppley Maneuver/Unlisted Completed 01/15/2005 83023 Asp./Injection major joint Completed 03/17/2004 72342 Arthroplasty Shoulder Total Completed 09/08/2001 Colonoscopy Completed Document: 09/08/01 - Procedure Note - Colon W/ BX Document: 09/08/01 - Pathology/Biopsy Result Encounters Type Date Location Provider CPT E/M Dx Office Visit 01/14/2018 9:20a [place] [address] E11.9 E78.5 E03.9 N18.3 M15.9 M48.07 Office Visit 10/02/2017 11:40a [place] [address] E11.9 E03.9 E78.5 R94.5 N18.3 Office Visit 07/09/2017 9:15a Orthopaedic Office [place], [address] M79.661 [facility] Office Visit 07/03/2017 10:40a [place] [address] E78.5 E11.9 E03.9 N20.0 Office Visit 06/26/2017 1:15p Orthopaedic Office [place], [address] M79.661 [facility] M25.571 Office Visit 06/19/2017 1:30p Orthopaedic Office [place], [address]33 M79.661 [facility] M25.571 Office Visit 04/12/2017 11:[place] [address] R93.3 Office Visit 04/02/2017 10:00a [place] [address] E78.5 E11.9 E55.9 E03.9 M47.26 Office Visit 03/27/2017 8:45[place] [address] R19.4 R12 Office Visit 08/10/2016 2:30[place] [address] Z12.11 R12 Office Visit 02/11/2015 9:30a [place] [address] 721.3 724.2 Office Visit 01/24/2015 2:00p [place] [address] 721.3 Office Visit 12/08/2014 8:45a [place] [address] 721.3 724.2 Office Visit 11/10/2014 9:00a [place] [address] 721.3 724.2 Office Visit 10/15/2014 8:30a [place] [address] 721.3 724.2 729.1 Office Visit 09/24/2014 10:45a Orthopaedic Office Nigel Delgado M.D. 57858 V54.89 719.45 724.2 Office Visit 07/05/2014 11:15a [place], [address] 727.03 [facility] Office Visit 10/12/2013 10:00a [place], [address] 727.03 [facility] Plan of Care 04/16/2018 - Ernestine Perera MDZ00.01 Encounter for general adult medical exam w abnormal findingsComments:-up to date on screenings-Discussed blood work results -advanced age and no need for further mammo and colonoscopy -up to date on vaccines-updated medical hx and medications-No falls, practicing safety, performs ADLs-Gets regular vision checks -No cognitive unqrqijmynZ80.9 Type 2 diabetes mellitus without complicationsNew Labs:Glycohemoglobin W9sGayak Metabolic PanelComments:-hgbA1c well controlled -repeat hgbA1c in 3 months-Sees Dr. Bradley of Optho and Dr. Galvez of podiatry - urine microalbuminuria - Continue Metformin 500mg po twice daily while GFR between 30-45 as she has been stable, will monitor [id number] and will d/c if GFR <30N18.3 Chronic kidney disease, stage 3 (moderate)New Labs:Vitamin D,25-HydroxyComments:-secondary to DM and HTN along with age related decline-monitor CKD labs -BP well controlled and DMwell controlled-CKD BMD vit D-PTH acceptable and can check [id number] upep negative -Avoid UCFPQnR56.07 Spinal stenosis, lumbosacral regionComments:- FOllowup with spine and wellness-Had Mild procedure and has some improvement in painN20.0 Calculus of kidneyNew Labs:Vitamin D,25-HydroxyComments:-COntinue to followup with Dr. Marcelino -Had right stent placed in PtgczkaO83.9 Rheumatoid arthritis, unspecifiedComments:-family hx of RA, positive RF-Seeing Dr So -Started on PlaquenilAllNew Medication:Vitamin D3 2000 Unit
[2018-04-28 13:01] VITALS: BP 131/84
--- NOTE | 2018-04-28 13:24 | UC ---
Respiratory Complaint HPI - HPI Summary HPI Summary: 87 year old female presents with 3 day history of general malaise, nasal congestion, post-nasal drip, bilateral ear fullness, and productive cough for yellow sputum. Associated with chills and mild SOB. Denies fever, sore throat, chest pain, abdominal pain, nausea, vomiting, or diarrhea. - History of Current Complaint Chief Complaint: UCRespiratory Stated Complaint: SORE THROAT CONGESTION Time Seen by Provider: 04/28/18 13:08 Hx Obtained From: Patient Onset/Duration: Gradual Onset, Lasting Days - 3 Pain Intensity: 0 Character: Cough: Productive Aggravating Factors: Deep Breaths, Recumbent Position Alleviating Factors: Nothing Associated Signs And Symptoms: Positive: Dyspnea, Chills, URI, Nasal Congestion , Hoarseness. Negative: Fever, Pleuritic Chest Pain, Wheezing, Hemoptysis, Calf Pain, Calf Swelling, Edema, Sinus Discomfort - Allergies/Home Medications Allergies/Adverse Reactions: Allergies Allergy/AdvReac Type Severity Reaction Status Date / Time No Known Allergies Allergy Verified 04/28/18 12:57 Home Medications: Home Medications Cholecalciferol TAB* [Vitamin D TAB*] 1 tab PO DAILY 04/28/18 [History Confirmed 04/28/18] PMH/Surg Hx/FS Hx/Imm Hx Endocrine History: Diabetes, Thyroid Disease, Dyslipidemia Cardiovascular History: Cardiac Disease, Hypertension GI/ History: Gastroesophageal Reflux - Surgical History Surgical History: Yes Surgery Procedure, Year, and Place: RIGHT THIGH STENTS 2007 & 2016- ANGIOPLASTY IN RIGHT THIGH. PACEMAKER 2003 & 2007. CHOLECYSTECTOMY/APPY 1960. HYSTERECTOMY 1975. BILT. HIP REPLACEMENTS 11/2000. BILAT.SHOULDER REPLACEMENTS RIGHT 03/13 LEFT 03/2011. BLADDER LIFT 2004. CATARACT BILATERAL 1999. SURGERIES FOR KIDNEY STONES /2015/2016. LEFT HAND TRIGGER FINGER RELEASE 10/22 & 04/24 - Family History Known Family History: Positive: Cardiac Disease - brothers, Diabetes - mother, brother, Respiratory Disease - father - emphysema, Other - stomach CA, breast CA , neck CA - Social History Occupation: Retired Lives: With Family Alcohol Use: None Substance Use Type: None Smoking Status (MU): Never Smoked Tobacco - Immunization History Most Recent Influenza Vaccination: 2015 Most Recent Tetanus Shot: within 10 years Most Recent Pneumonia Vaccination: 2009 Review of Systems All Other Systems Reviewed And Are Negative: Yes Constitutional: Positive: Chills. Negative: Fever Skin: Negative: Rash Eyes: Negative: Drainage, Eye Redness ENT: Positive: Ear Ache, Nasal Discharge, Sinus Congestion. Negative: Sore Throat, Sinus Pain/Tenderness Respiratory: Positive: Shortness Of Breath, Cough Cardiovascular: Negative: Palpitations, Chest Pain Gastrointestinal: Negative: Abdominal Pain, Vomiting, Diarrhea, Nausea Is Patient Immunocompromised?: No Physical Exam Triage Information Reviewed: Yes Appearance: No Pain Distress, Obese Vital Signs: Initial Vital Signs Temp 97 F 04/28/18 12:56 Pulse 84 04/28/18 12:56 Resp 26 04/28/18 12:56 BP 131/84 04/28/18 12:56 Pulse Ox 98 04/28/18 12:56 Vital Signs Reviewed: Yes Eyes: Positive: Conjunctiva Clear. Negative: Discharge ENT: Positive: Hearing grossly normal, Pharyngeal erythema - Mild with cobblestoning, Nasal congestion, Nasal drainage - Clear, TMs normal, Uvula midline. Negative: Tonsillar swelling, Tonsillar exudate, Trismus, Sinus tenderness Neck: Positive: Supple, Nontender, No Lymphadenopathy Respiratory: Positive: Lungs clear, Normal breath sounds, No respiratory distress, Other: - Dry, nonproductive cough Cardiovascular: Positive: RRR, No Murmur, Pulses Normal, Brisk Capillary Refill Abdomen Description: Positive: Nontender, No Organomegaly, Soft. Negative: Distended, Guarding Bowel Sounds: Positive: Present Neurological: Positive: Alert Skin Exam: Normal UC Diagnostic Evaluation - Laboratory O2 Sat by Pulse Oximetry: 98 Diagnostic Studies Comment: Rapid flu negative Respiratory Course/Dx - Course Course Of Treatment: 87 year old female presents with 3 day history of general malaise, nasal congestion, post-nasal drip, bilateral ear fullness, and productive cough for yellow sputum. Afebrile. VSS. Exam consistent with a viral URI. Recommend symptomatic treatment. Will provide Tessalon Perles PRN for cough management. Patient is to follow up with PCP if symptoms persist. Warning symptoms reviewwed. Patient verbalizes understanding and agrees with POC. - Differential Dx/Diagnosis Differential Diagnosis/HQI/PQRI: Bronchitis, Influenza, Lower Resp Infection, Sinusitis, Other - URI Provider Diagnoses: Viral URI Discharge - Sign-Out/Discharge Documenting (check all that apply): Patient Departure All imaging exams completed and their final reports reviewed: No Studies - Discharge Plan Condition: Stable Disposition: HOME Prescriptions: Benzonatate CAP* [Tessalon 100 MG CAP*] 100 mg PO TID PRN #30 cap PRN Reason: Cough Referrals: Ernestine Perera MD [Primary Care Provider] - 7 Days (If no improvement in symptoms.) Additional Instructions: Your history and exam are consistent with viral upper respiratory infection. Viral infections do not respond to antibiotics and typically run their course over 7-10 days. Get plenty of rest. Drink plenty of fluids to avoid dehydration. Use a saline rinse kit such as Neti Pot or NeilMed at least twice a day. Start fluticasone nasal spray 2 sprays each nostril once a day. Take acetaminophen (Tylenol) according to directions as needed for fever or pain. Use Tessalon Perles 1 cap every 8 hours as needed for cough. Follow-up with your primary care provider in 7 days if symptoms persist. Seek immediate medical attention if you have a persistent fever greater than 100.5 F despite taking acetaminophen, you develop chest pain, have difficulty breathing, or have any worsening of symptoms. - Billing Disposition and Condition Condition: STABLE Disposition: Home - Attestation Statements Provider Attestation: I was available for consult. This patient was seen by the FLACO. The patient was not presented to, seen by, or examined by me. -Bhavya
== END 2018-04-28 13:55 | disposition home or self-care (01) ==
LOC: UCCORT 12:13
DX: J06.9 Acute upper respiratory infection, unspecified (principal)
CPT/HCPCS: 99212; G0463

== ENCOUNTER → 2018-10-31 08:17 | Day surgery (SDC) | payer MEDICARE, OTHER, BC ==
--- NOTE | 2018-10-08 08:13 | HP ---
CC: Dr. Ro * HISTORY AND PHYSICAL: DATE OF PLANNED ADMISSION AND PROCEDURE: 10/31/18 HISTORY OF PRESENT ILLNESS: Mrs. Doran is an 88-year-old white female with right ureteral stricture, status post placement of right ureteral stent for cystoscopy and right ureteral stent exchange. Mrs. Doran' history goes back to April 2016 when she had an impacted calculus in the distal right ureter. The stones were treated with ureteroscopy and laser lithotripsy and she had another procedure because of an impacted calculus in the same area in July 2016. Following removal of the stent, the patient was noted to have right hydroureteronephrosis with obstruction at the level of the distal ureter where the calculi were originally located. She had a ureteroscopy which confirmed the presence of a stricture. She had balloon dilation and placement of a ureteral stent. Following the stent removal the hydronephrosis recurred. The patient had a diuretic and nuclear renal scan, which showed obstructive changes in her right kidney. Because of that history, the patient had a right ureteroscopy balloon dilation and insertion of a right ureteral stent in March 2018. She has done well and her stent has been very well tolerated and had much improvement in her hydronephrosis. Decision was made to keep her on ad terminal makeup operator stent drainage, rather than subjecting her to open surgical correction of the stricture Recent ultrasound showed [id number] right hydronephrosis. The patient is now admitted for right ureteral stent exchange. PAST MEDICAL HISTORY AND SYSTEM REVIEW: The patient has morbid obesity, hypertension, hypothyroidism, hyperlipidemia, type 2 diabetes mellitus, chronic arthritis. She has a pacemaker inserted. She also has bilateral hip prosthesis. She is a non smoker. Family History: negative. MEDICATIONS: She is maintained on: 1. One regular aspirin per day. 2. Cymbalta 60 mg daily. 3. Gabapentin 300 mg twice a day. 4. Levothyroxine 150 mcg daily. 5. Losartan 50 mg daily. 6. She is a diabetic, on metformin 500 mg twice a day. 7. She has hyperlipidemia, on simvastatin 30 mg daily. 8. She has GERD, on pantoprazole 40 mg daily. 9. She has a history of glaucoma and she is on timolol eye drops. ALLERGIES: She denies any allergies to medications. PHYSICAL EXAMINATION GENERAL: She is an obese white female who looks her age. VITAL SIGNS: Blood pressure 136/72, pulse of 56, oxygen saturation 98% on room air. LUNGS: Clear. HEART: Regular and rhythmic, no murmurs. ABDOMEN: Obese, no masses, no tenderness, and no CVA tenderness. EXTREMITIES: Negative. IMPRESSION: Distal right ureteral stricture causing right hydronephrosis managed by chronic right ureteral stent drainage. PLAN/RECOMMENDATIONS: Plan is for cystoscopy and right ureteral stent exchange. I discussed the above plans with the patient and her sister and all their questions were answered. [id number]/CPS #: [id number] MARLENE
[~2018-10-31 08:17] MED LIST changes: -Buffered Lidocaine 0.9% SYRIN* 5 ML/SYR SYRINGE INTRADERM ONE; +Buffered Lidocaine 1% SYRIN* 1 ML/SYRINGE INTRADERM ONE; +Dexamethasone TAB* 4 MG ONE; +Dexamethasone TAB* 4 MG PO ONE; +DiMENhydriNATE IV* 50 MG/ML VIAL IV PUSH PRN; +Famotidine IV* 10 MG/ML 2 ML (20 mg) ONE; +Iohexol 180 (CONTRAST) 10 ML SDV IV ONE; +KETAMINE HCL* 50 MG/ML 10 ML VIAL ONE; +Lactated Ringers 1000 ML Bag* 1,000 ML IV SCH; +Lidocaine 2% PF * 5 ML VIAL ONE; +Midazolam* 1 MG/ML 2 ML VIAL (2 MG) ONE; +Morphine 4 MG/ML VIAL (1 ml) 4 MG/ML VIAL IV PRN; +Naloxone* 0.4 MG/ML 1 ML VIAL IV PRN; +Ondansetron ODT TAB* 4 MG ONE; +Ondansetron TAB* 4 MG PO ONE; +PROCHLORPERAZINE INJ 5 MG/ML 2 ML VIAL IV PRN; +cefTRIAXone(*) 1 GM ADVAN/BAG ONE; +fentaNYL* 50 MCG/ML 2 ML VIAL (100 MCG VIAL) IV PRN; +fentaNYL* 50 MCG/ML 2 ML VIAL (100 MCG VIAL) ONE; +oxyCODONE/Acetamin 5/325 MG* TAB PO PRN
[2018-10-31 12:21] VITALS: BP 132/82
--- NOTE | 2018-10-31 14:18 | OP ---
CC: Dr. Ro OPERATIVE REPORT: DATE OF OPERATION: 10/31/18 DATE OF : 28 SURGEON: Abel Marcelino MD ANESTHESIOLOGIST: Dr. Samson Florez. ANESTHESIA: General. PRE-OP DIAGNOSES: 1. Distal right ureteral stricture. 2. Status post placement of right ureteral stent. POST-OP DIAGNOSES: 1. Distal right ureteral stricture. 2. Status post placement of right ureteral stent. OPERATIVE PROCEDURE: 1. Cystoscopy. 2. Right retrograde pyelography. 3. Right ureteral stent exchange (black silicone, 24 cm, 8.5 Ukrainian). INDICATION FOR PROCEDURE: Mrs. Doran is an 88-year-old white female who developed distal right ureteral stricture secondary to a chronically impacted ureteral calculus. This stricture has recurred following the stone and stent removals, and recurred after balloon dilation, and the patient has been managed with chronic stent drainage. The stent was last replaced about 6 months ago. She is now admitted for elective right ureteral stent exchange. PATHOLOGY AT CYSTOSCOPY: The bladder mucosa showed mild degree of hyperemia. The distal limb of the stent was seen coming from the right ureteral orifice. Right retrograde pyelography showed moderate right hydronephrosis and hydroureter. The urine from the right kidney was clear. DESCRIPTION OF PROCEDURE: After successful general anesthesia, the patient was placed in the lithotomy position and was prepped and draped for a cystoscopy. Cystoscopy was performed. The bladder was inspected and above findings were noted. The distal limb of the stent was pulled out to the level of the urethral meatus. A flexible-tip guidewire was then introduced through the lumen of the stent and positioned in the area of the renal pelvis. Retrograde pyelography was performed. A black silicone stent, 24 cm long, 8.5 Ukrainian was then placed with the proximal end coiling in the renal pelvis and the distal end coiling inside the bladder. There was good drainage of contrast from the kidney. The patient tolerated the procedure well and left the operating room in good condition. [id number] #: [id number] MTDD
== END | disposition home or self-care (01) ==
LOC: OR 08:17
PROVIDERS: ATTEND Urology
DX: N13.1 Hydronephrosis with ureteral stricture, not elsewhere classified (principal); E66.01 Morbid (severe) obesity due to excess calories; E11.9 Type 2 diabetes mellitus without complications; Z79.84 Long term (current) use of oral hypoglycemic drugs; I10 Essential (primary) hypertension; E03.9 Hypothyroidism, unspecified; E78.5 Hyperlipidemia, unspecified; M19.90 Unspecified osteoarthritis, unspecified site; Z95.0 Presence of cardiac pacemaker; I49.5 Sick sinus syndrome
CPT/HCPCS: 74420; A9270-GY; C1876; J0696; J2250; J3010; J8540

== ENCOUNTER 2019-01-17 14:17 | Emergency (ER) | payer MEDICARE, BC ==
[~2019-01-17 14:17] MED LIST changes: -Buffered Lidocaine 1% SYRIN* 1 ML/SYRINGE INTRADERM ONE; -Dexamethasone TAB* 4 MG ONE; -Dexamethasone TAB* 4 MG PO ONE; -DiMENhydriNATE IV* 50 MG/ML VIAL IV PUSH PRN; -Famotidine IV* 10 MG/ML 2 ML (20 mg) IV ONE; -Famotidine IV* 10 MG/ML 2 ML (20 mg) ONE; -Iohexol 180 (CONTRAST) 10 ML SDV IV ONE; -KETAMINE HCL* 50 MG/ML 10 ML VIAL ONE; -Lactated Ringers 1000 ML Bag* 1,000 ML IV SCH; -Lidocaine 2% PF * 5 ML VIAL ONE; +Lidocaine PATCH 5%* 1 PATCH TRANSDERM SCH; -Midazolam* 1 MG/ML 2 ML VIAL (2 MG) ONE; -Morphine 4 MG/ML VIAL (1 ml) 4 MG/ML VIAL IV PRN; -Naloxone* 0.4 MG/ML 1 ML VIAL IV PRN; -Ondansetron ODT TAB* 4 MG ONE; -Ondansetron TAB* 4 MG PO ONE; -PROCHLORPERAZINE INJ 5 MG/ML 2 ML VIAL IV PRN; -cefTRIAXone(*) 1 GM ADVAN/BAG ONE; -fentaNYL* 50 MCG/ML 2 ML VIAL (100 MCG VIAL) IV PRN; -fentaNYL* 50 MCG/ML 2 ML VIAL (100 MCG VIAL) ONE; -oxyCODONE/Acetamin 5/325 MG* TAB PO PRN
--- NOTE | 2019-01-17 15:21 | ED ---
Back Pain - HPI Summary HPI Summary: This patient is an 88 year old F history of renal stones, ureteral stent on the right, chronic lower back pain, peripheral vascular disease presenting to ED with a chief complaint of back pain that radiates into the R leg worsening since 01/13/19. Patient took Tylenol [employer], but it did not help. Patient had a similar pain a long time ago. She has a history of sciatica, thinks maybe different. When the pain began, patient reports being at rest. However, two weeks ago, patient fell on her back after bathing. Patient felt like she was going to fall and she grabbed a towel rack to stabilize herself, but she and the towel rack both fell instead (usually uses powerchair to get around). She is unsure if the pain is related. Patient had burning during urination a week ago and was treated by her PCP for UTI and is now feeling better. The patient rates the pain 8/10 in severity, achy, located in her right lower back radiating down her leg. Patient reports chronic weakness in the legs for which she is a power wheelchair at home. Patient denies hematuria, no urinary retention, no saddle anesthesia or numbness in legs. - History of Current Complaint Chief Complaint: EDBackInjuryPain Stated Complaint: BACK PAIN Time Seen by Provider: 01/17/19 14:48 Hx Obtained From: Patient Onset/Duration: Gradual Onset, Lasting Days - Since 01/13/19, Still Present, Worse Since Onset/Duration: Started Days Ago - Since 01/13/19, Still Present, Worse Since Timing: Constant Back Pain Location: Is Diffuse - Low back, Radiates To - Right leg Severity Initially: Severe Severity Currently: Severe Pain Intensity: 8 Pain Scale Used: 0-10 Numeric Aggravating Symptom(s): Nothing Alleviating Symptom(s): Nothing Associated Signs And Symptoms: Positive: Negative - Hematuria - Allergies/Home Medications Allergies/Adverse Reactions: Allergies Allergy/AdvReac Type Severity Reaction Status Date / Time No Known Allergies Allergy Verified 10/31/18 09:08 PMH/Surg Hx/FS Hx/Imm Hx Endocrine/Hematology History: Reports: Hx Diabetes - TYPE II- ON ORAL MEDICATION FOR, Hx Thyroid Disease - HYPOTHYROID, Hx Anemia - HX OF IN THE PAST Cardiovascular History: Reports: Hx Coronary Artery Disease, Hx Hypertension - ON MEDICATION FOR, Hx Pacemaker/ICD - DR. MONTERO FOLLOWS, Hx Peripheral Vascular Disease - 2 STENTS RIGHT LEG 2016, Other Cardiovascular Problems/Disorders - MOBITZ II AV BLOCK Denies: Hx Congestive Heart Failure Respiratory History: Reports: Hx Sleep Apnea Denies: Other Respiratory Problems/Disorders GI History: Reports: Hx Gastroesophageal Reflux Disease - ON MEDICATION FOR, Hx Hiatal Hernia Denies: Hx Cirrhosis, Hx Crohn's Disease, Hx Irritable Bowel, Other GI Disorders History: Reports: Hx Kidney Infection - HX OF, Hx Kidney Stones - HX OF KIDNEY STONES MULTIPLE, Other Problems/Disorders - URGENCY AND INCONTINENCE- WEAR DEPENDS TYPE PANTS Musculoskeletal History: Reports: Hx Arthritis - HX OF - " THROUGHOUT BODY", Hx Bursitis - many years ago, Hx Osteoporosis, Other Musculoskeletal History - [facility]-used to do injections, changing tx Sensory History: Reports: Hx Cataracts - bilateral eyes, Hx Contacts or Glasses - GLASSES, Hx Glaucoma - bilateral eyes, Hx Hearing Aid - BILATERAL, Hx Hearing Problem Opthamlomology History: Reports: Hx Cataracts - bilateral eyes, Hx Contacts or Glasses - GLASSES, Hx Glaucoma - bilateral eyes Neurological History: Denies: Other Neuro Impairments/Disorders Psychiatric History: Reports: Hx Anxiety - ON MEDICATION FOR, Hx Depression - ON MEDICATION FOR - Cancer History Hx Chemotherapy: No - Surgical History Surgery Procedure, Year, and Place: RIGHT THIGH STENTS 2007 & 2016- ANGIOPLASTY IN RIGHT THIGH. PACEMAKER 2003 & 2007. CHOLECYSTECTOMY/APPY 1960. HYSTERECTOMY 1975. BILT. HIP REPLACEMENTS 11/2000. BILAT.SHOULDER REPLACEMENTS RIGHT 03/13 LEFT 03/2011. BLADDER LIFT 2004. CATARACT BILATERAL 1999. SURGERIES FOR KIDNEY STONES /2015/2016. LEFT HAND TRIGGER FINGER RELEASE 10/22 & 04/24 Hx Anesthesia Reactions: No - Immunization History Date of Tetanus Vaccine: unsure Date of Influenza Vaccine: 2012 Infectious Disease History: No Infectious Disease History: Denies: Hx Hepatitis, Traveled Outside the [place] in Last 30 Days - Family History Known Family History: Positive: Cardiac Disease - brothers, Diabetes - mother, brother, Respiratory Disease - father - emphysema, Other - stomach CA, breast CA , neck CA - Social History Alcohol Use: None Hx Substance Use: No Substance Use Type: Reports: None Hx Tobacco Use: No Smoking Status (MU): Never Smoked Tobacco Review of Systems Negative: hematuria Musculoskeletal: Other - Back pain radiating into R leg, chronic weakness in legs All Other Systems Reviewed And Are Negative: Yes Physical Exam - Summary Physical Exam Summary: Constitutional: Elderly female NAD Skin: Warm, Dry HENT: Normocephalic; Atraumatic Eyes: Conjunctiva normal Neck: Musculoskeletal ROM normal neck Cardio: Rhythm regular, rate normal, Heart sounds normal; Intact distal pulses; Radial pulses are 2+ and symmetric. (-) Murmur Pulmonary/Chest wall: Effort normal. (-) Respiratory distress, (-) Wheezes, (-) Rales Abd: Soft, (-) tenderness, (-) Distension, (-) Guarding, (-) Rebound Musculoskeletal: midline thoracic and lumbar tenderness, paraspinal lumbar tenderness. Positive straight leg raise on the right. Doppler signal in her PT and DP pulse on the right, palpable DP on the left. No flank TTP. Lymph: (-) Cervical adenopathy Neuro: Alert, Oriented x3, SILT. Strength 5/5 Hips/knees/feet. Gait deferred as patient uses power wheelchair to get around normally. Psych: Mood and affect Normal Triage Information Reviewed: Yes Vital Signs On Initial Exam: Initial Vitals Temp Pulse Resp BP Pulse Ox 97.8 F 60 16 144/56 96 01/17/19 14:18 01/17/19 14:18 01/17/19 14:18 01/17/19 14:18 01/17/19 14:18 Vital Signs Reviewed: Yes Diagnostics - Vital Signs Vital Signs Temp Pulse Resp BP Pulse Ox 01/17/19 14:18 97.8 F 60 16 144/56 96 - Laboratory Result Diagrams: 01/17/19 15:57 01/17/19 15:57 Lab Statement: Any lab studies that have been ordered have been reviewed, and results considered in the medical decision making process. - CT T-spine CT Interpretation Completed By: Radiologist Summary of CT Findings: 1. Cardiomegaly. Limited visualized lung bases are remarkable for mild interstitial edema. Trace pleural effusions. 2. RIGHT nephrostomy tube in place. Mild caliectasis of the RIGHT kidney. 3. Negative for paravertebral hematoma. 4. Increased thoracic kyphosis. Minimal degenerative anterolisthesis at multiple levels. 5. Negative for thoracic spine fracture. Bone density appears decreased throughout. 6. Diffuse degenerative spondylosis and Multilevel segmental ossification of the anterior longitudinal ligament of the thoracic spine consistent with Diffuse Idiopathic Skeletal Hyperostosis (DISH). Multilevel ankylosis across the disc spaces. 7. No suggestion of significant central canal spinal stenosis at any level. Dr. Aguiar has reviewed this radiology report. L-spine CT Interpretation Completed By: Radiologist Summary of CT Findings: 1. Negative for fracture. 2. Multilevel acquired spinal stenosis as described. Negative for significant interval change compared with the [address] Aguiar has reviewed this radiology report. Re-Evaluation - Re-Evaluation First Eval Re-Evaluation Time: 16:20 Comment: Discussed results with patient. Patient will be discharged home with dx of back pain and DISH pending blood work. Patient understands and agrees with this plan. Second Eval Re-Evaluation Time: 16:40 Comment: Creatinine at baseline. CT showing mild dilation of the calyces, where she has her right urethral stent. Patient has known hydronephrosis of the right kidney, seen on ultrasound on 02/27/2018. Third Eval Re-Evaluation Time: 16:43 Comment: Discussed results with patient. Patient will be discharged home with dx of back pain and DISH. Patient understands and agrees with this plan. Back Pain Course/Dx - Course Course Of Treatment: 88-year-old female with a history of chronic lower back pain, renal stones status post right ureteral stent, who presents with right lower back pain. Denies bladder incontinence or urinary retention, numbness or tingling of the legs, saddle anesthesia. No new weakness. Uses power wheelchair at baseline. ddx. - recent fall two weeks ago, check CT TL spine for fracture. States that this feels different than her normal renal colic secondary to stones, recently treated UTI denies current urinary symptoms. Check creatinine baseline creatinine is around 1.8. Patient had a recent ultrasound in February of last year showing severe hydronephrosis. - Spinal metastasis - No constitutional symptoms, weight loss, or known primary cancer to suggest met to spine. - Epidural abscess/osteomyelitis/discitis - No fever/ IVDU/indwelling lines to suggest epidural abscess, osteomyelitis, or discitis. - PNA/PTX/PE - No respiratory symptoms to suggest PNA, PTX or PE. - Pancreatitis - No epigastric tenderness or GI sx to suggest pancreatitis. - Diagnoses Provider Diagnoses: Back pain, DISH (diffuse idiopathic skeletal hyperostosis) Discharge - Sign-Out/Discharge Documenting (check all that apply): Patient Departure - Discharge Patient Received Moderate/Deep Sedation with Procedure: No - Discharge Plan Condition: Stable Disposition: HOME Patient Education Materials: Back Pain (ED) Referrals: Ernestine Perera MD [Primary Care Provider] - 3 Days Bon Samuel MD [Medical Doctor] - 3 Days Additional Instructions: You were seen in the emergency department for pain. Your CT scan of your thoracic and lumbar spine showed degenerative changes, you can follow up w our orthopedic doctors regarding this. If any studies were not completed at the time of discharge you will be called with the relevant results. Please follow up with your primary care doctor in next 2-3 days and return to emergency department for worsening pain, numbness or tingling in your legs, weakness, bowel or bladder incontinence or concerning symptoms. - Billing Disposition and Condition Condition: STABLE Disposition: Home - Attestation Statements Document Initiated by Brenda: Yes Documenting Scribe: Robel Galvan Provider For Whom Aniaibe is Documenting (Include Credential): Jyoti Aguiar MD Scribe Attestation: IRobel, scribed for Jyoti Aguiar MD on 01/17/19 at 1651. Scribe Documentation Reviewed: Yes Provider Attestation: The documentation as recorded by the Robel palomares accurately reflects the service I personally performed and the decisions made by , Jyoti Aguiar MD Status of Scribe Document: Viewed
[2019-01-17] MEDS ORDERED: Ibuprofen TAB* 600 MG PO ONE (15:27)
[2019-01-17] MEDS ORDERED: Lidocaine PATCH 5%* 1 PATCH ONE (15:47)
[2019-01-17 16:19] LABS: ABS Eosinophils 0.1 10^3/ul (0-0.6); ABS Lymphocytes 1.1 10^3/ul (1.0-4.8); ABS Monocytes 0.5 10^3/ul (0-0.8); ABS Neutrophils 4.7 10^3/ul (1.5-7.7); Eosinophil % 1.5 %; Hematocrit 32 % (35-47); Lymphocyte % 16.7 %; Mean Corpuscular HGB Conc 34 g/dL (31-36); Mean Corpuscular Hemoglobin 27 pg (27-31); Mean Corpuscular Volume 80 fL (80-97); Mean Platelet Volume 9.2 fL (7.4-10.4); Platelet Count 121 10^3/uL (150-450); Red Blood Count 4.01 10^6 /uL (3.70-4.87); Red Cell Distribution Width 17 % (10-15); White Blood Count 6.4 10^3/uL (3.5-10.8)
[2019-01-17 16:37] LABS: Albumin/Globulin Ratio 1.6 (1-3); BUN/Creatinine Ratio 14.9 (8-20); Calcium 9.7 mg/dL (8.6-10.3); EGFR African American 33.1 (>60); EGFR Non-African American 27.4 (>60); Globulin 2.5 g/dL (2-4); Potassium 4.7 mmol/L (3.5-5.0); Total Protein 6.5 g/dL (6.4-8.9)
[2019-01-17 16:52] VITALS: BP 134/55
[2019-01-17] MEDS ORDERED: Lidocaine Patch REMOVE* 1 NOTE MISC SCH ×2 (21:00)
== END 2019-01-17 16:49 | disposition home or self-care (01) ==
LOC: ED 14:17
DX: M48.19 Ankylosing hyperostosis [Forestier], multiple sites in spine (principal); M54.9 Dorsalgia, unspecified; E11.9 Type 2 diabetes mellitus without complications; E03.9 Hypothyroidism, unspecified; D64.9 Anemia, unspecified; I25.10 Atherosclerotic heart disease of native coronary artery without angina pectoris; I10 Essential (primary) hypertension; K21.9 Gastro-esophageal reflux disease without esophagitis; F41.9 Anxiety disorder, unspecified; F32.9 Major depressive disorder, single episode, unspecified; Z79.899 Other long term (current) drug therapy
CPT/HCPCS: 36415; 72128; 72131; 80053; 85025; 99282; A9270-GY

== ENCOUNTER → 2019-05-25 05:40 | Day surgery (SDC) | payer MEDICARE, BC ==
--- NOTE | 2019-05-13 07:31 | HP ---
CC: Dr. Ro * HISTORY AND PHYSICAL: DATE OF PLANNED ADMISSION AND SURGERY: 05/25/19 HISTORY OF PRESENT ILLNESS: Mrs. Doran is an 88-year-old white female who is admitted with a distal right ureteral stricture, status post placement of right ureteral stent for cystoscopy and right ureteral stent exchange. Mrs. Doran developed a distal right ureteral stricture after ureteroscopy and laser lithotripsy of a chronically impaction distal right ureteral calculus. The stricture was managed initially with balloon dilations and chronic stenting , but it recurred, and required replacement of the ureteral stent. Considering the patient's age, her comorbidities, and her body habitus, it was felt that she is not a candidate for right ureteral reimplantation and she has been managed with chronic ureteral stent, which is replaced once every 6 months. The stent was last replaced on 10/31/18. Recent evaluation in the office with renal ultrasound showed the stent to be in good position with minimal hydronephrosis. The patient had some episodes of urinary tract infections that were uncomplicated, and were treated. The patient is now admitted for cystoscopy and right ureteral stent exchange. PAST MEDICAL HISTORY AND SYSTEM REVIEW: The patient is hypertensive and has history of hypothyroidism, hyperlipidemia, type 2 diabetes mellitus, chronic arthritis, and has morbid obesity. She has a pacemaker because of arrhythmias. She has had bilateral hip prosthesis placement. Her mental health history is negative. MEDICATIONS: The patient is on: 1. Aspirin 325 mg daily. 2. Cymbalta 60 mg daily. 3. Gabapentin 300 mg twice a day. 4. Levothyroxine 150 mcg daily. 5. Losartan 50 mg daily. 6. Metformin 500 mg twice a day. 7. Simvastatin 30 mg daily. 8. Pantoprazole 40 mg daily. 9. Timolol eye drops for glaucoma. ALLERGIES: She denies any allergies to medications. FAMILY HISTORY: Negative. SOCIAL HISTORY: She is a nonsmoker. She has no history of drug use. PHYSICAL EXAMINATION GENERAL: She is a pleasant, but morbidly obese white female who has difficulty ambulating and who otherwise looks her age. VITAL SIGNS: Blood pressure 120/76, pulse of 60. LUNGS: Clear. HEART: Regular and rhythmic. No murmurs. ABDOMEN: Soft, obese. No CVA tenderness. EXTREMITIES: She has [id number] bilateral leg edema. IMPRESSION: Chronic distal right ureteral stricture, managed with chronic stent drainage. PLAN: Plan is for cystoscopy and right ureteral stent exchange. I discussed the above plans with the patient. All her questions were answered. [id number]/CPS #: [id number] MARLENE
[~2019-05-25 05:40] MED LIST changes: +Acetaminophen TAB* 325 MG PO PRN; +Buffered Lidocaine 1% SYRIN* 1 ML/SYRINGE INTRADERM ONE; +Dexamethasone IV* 4 MG/ML 1 ML (4 MG) ONE; +Iohexol 180 (CONTRAST) 10 ML SDV IV ONE; +Ketorolac INJ* 30 MG/ML 1 ML VIAL ONE; +Lactated Ringers 1000 ML Bag* 1,000 ML IV SCH; +Lidocaine 2% PF * 5 ML VIAL ONE; -Lidocaine PATCH 5%* 1 PATCH TRANSDERM SCH; +Metoclopramide IV* 5 MG/ML 2 ML VIAL IV PRN; +Midazolam* 1 MG/ML 2 ML VIAL (2 MG) ONE; +Naloxone* 0.4 MG/ML 1 ML VIAL IV PRN; +Ondansetron INJ* 2 MG/ML VIAL ONE; +Phenylephrine 40 MCG/ML SYRINGE ONE; +Propofol* 10 MG/ML 20 ML BTL ONE; +cefTRIAXone(*) 2 GM ADDV.VIAL IVPB ONE; +fentaNYL* 50 MCG/ML 2 ML VIAL (100 MCG VIAL) ONE
--- NOTE | 2019-05-25 09:12 | OP ---
CC: Dr. Ro * DATE OF OPERATION: 05/25/19 - [facility] DATE OF : 28 SURGEON: Abel Marcelino MD ANESTHESIOLOGIST: Dr. Layton ANESTHESIA: General. PRE-OP DIAGNOSES: 1. Distal right ureteral stricture. 2. Status post placement right ureteral stent. POST-OP DIAGNOSES: 1. Distal right ureteral stricture. 2. Status post placement right ureteral stent. OPERATIVE PROCEDURE: 1. Cystoscopy. 2. Right retrograde pyelography. 3. Right ureteral stent exchange (24-cm, 8.5-Gibraltarian, 24-cm long). INDICATION FOR PROCEDURE: Mrs. Doran is an 88-year-old white female who developed a distal right ureteral stricture secondary to chronically impacted right ureteral calculus. The stricture was dilated twice, however, it recurred and considering the patient's age and her comorbidities, it was decided that to manage her with chronic ureteral stent drainage. The stent was last replaced about 7 months ago. She is now admitted for elective right ureteral stent exchange. PATHOLOGY: At cystoscopy, the bladder mucosa showed hyperemia around the right ureteral orifice where the distal limb of the stent was noted. No suspicious bladder lesions were seen. No calculi or diverticula noted in the bladder. Right retrograde pyelography showed normal collecting system and no hydronephrosis. DESCRIPTION OF PROCEDURE: After successful general anesthesia, the patient was placed in the lithotomy position and was prepped and draped for cystoscopy. Cystoscopy was performed. The bladder was inspected and the above findings were noted. The right ureteral stent was removed. A flexible tip guidewire was introduced without difficulty inside the right ureter and positioned in the collecting system. A retrograde pyelography was then performed. A black silicone stent, 24 cm long, 8.5-Gibraltarian was then placed with the proximal end coiling in the renal pelvis and the distal end coiling inside the bladder. There was good drainage of contrast from the kidney and no extravasation. The patient tolerated the procedure well and left the operating room in good condition. The plan is to follow the patient in the office in 3 months, earlier if she has urinary symptoms. Decision will then be made regarding the ureteral stent exchange. [id number]/CPS #: [id number] [facility]
[2019-05-25 11:28] VITALS: BP 123/75
== END | disposition home or self-care (01) ==
LOC: OR 05:40
PROVIDERS: ATTEND Urology
DX: N13.5 Crossing vessel and stricture of ureter without hydronephrosis (principal); E11.9 Type 2 diabetes mellitus without complications; Z79.84 Long term (current) use of oral hypoglycemic drugs; I10 Essential (primary) hypertension; E03.9 Hypothyroidism, unspecified; E66.01 Morbid (severe) obesity due to excess calories; E78.5 Hyperlipidemia, unspecified; M19.90 Unspecified osteoarthritis, unspecified site
CPT/HCPCS: 74420; C1876; J0696; J1100; J1885; J2250; J2405; J2704; J3010